=== PATIENT | female | born 1940 | race Caucasian/White ===

== ENCOUNTER 2016-03-27 15:57 | Emergency (ER) | payer MEDICARE, MEDICAID ==
[~2016-03-27] VITALS: Ht 160 cm; Wt 68.0 kg
[~2016-03-27 15:57] MED LIST: ASPI-892 PO; BUDE6HFA IH; CEFD300C PO; CEPH250C PO; CIPR-226 PO; CYCL-97 PO; DEXL60CA PO; EST.625T PO; EST1.25T; ETD400T PO; FAMO20TA5 PO; FLUT16SP22 NSEACH; FLUT1DIS26 IH; GABA-486 PO; HYDR-34 PO; HYDR-3820 PO; HYDR-757 PO; HYDR12.56; HYDR1TAB PO; INSU100I14 SC; L.AC1CAP6 PO; LEVO75TA6 PO; LISI-552 PO; LISI20TA PO; LOPE1TAB13 PO; LVT.05T PO; METO-272 PO; NAPR500T3 PO; OMG1KC; OMG1KC PO; ONDA4TAB11 SL; PRD20T PO; ROPI0.256 PO; ROPI0.5T2 PO; ROSU5TAB PO; RT-COMBINH IH; SERT100T PO; SERT100T8 PO; SIMV40TA2; [UNRECOGNIZED DRUG - CODE]
--- OUTSIDE RECORDS SUMMARY | 2016-03-27 16:02 | XMS REPORT | Continuity of Care Document ---
Author Author [facility] Organization [facility] Address Unknown Phone Unavailable Care Team Providers Care Alum Operator Name Role Phone NO, LOCAL PHYSICIAN PCP Unavailable Insurance Providers Payer Name Policy Number Subscriber Name Relationship s Medicare [id number] Armani Serna R 18 Self / Same As Patient [facility] Amerigrp [id number] Armani Serna R 18 Self / Same As Patient Advance Directives Directive Response Recorded Date/Time Advance Directives No 03/12/16 4:46pm Health Care Power of Auto Inspector No 03/12/16 4:46pm Organ Donor No 03/12/16 4:46pm Resuscitation Status Full Code 03/12/16 4:46pm Chief Complaint and Reason for Visit Chief Complaint FACIAL CELLULITIS,QUESTIONABLE SPIDER BITE TO R FO Reason for Visit Urinary tract infection Problems Active Problems Medical Problem Onset Date Status Facial cellulitis Unknown Acute Gastroenteritis Unknown Acute Hypotension Unknown Acute Left ankle sprain Unknown Acute Lumbar radiculopathy Unknown Acute Nausea vomiting and diarrhea Unknown Acute Pneumonia Unknown Acute Urinary tract infection Unknown Acute Medications Current Home Medications Medication Dose Units Route Directions Days/Qty Instructions Start Date Aspirin 81 Mg 81 Mg Oral Daily 11/12/08 Metoprolol Succinate 50 Mg 50 Mg Oral Daily 03/13/16 Levothyroxine Sodium 75 Mcg 75 Mcg Oral Daily 03/13/16 Famotidine 20 Mg 20 Mg Oral Twice A Day 03/13/16 Sertraline Hcl 100 Mg 100 Mg Oral Daily 03/13/16 Lisinopril 20 Mg 20 Mg Oral Daily 03/13/16 Rosuvastatin Calcium 5 Mg 5 Mg Oral Daily as needed for Hs 03/13/16 Fluticasone Propionate 16 Gm 1 [place] Each Nostril Twice A Day Ondansetron 4 Mg 4 Mg Sublingual Every 4-6 Hours as needed for Nausea/ Vomiting 03/13/16 Hydrocodone/Acetaminophen 1 Each 1-2 Tab Oral Every 4HRS as needed for Pain 03/13/16 Prednisone 20 Mg 20 Mg Oral Daily@1300 5 Days 03/14/16 Cephalexin 250 Mg 250 Mg Oral Three Times A Day 10 03/14/16 Past Home Medications Medication Directions Ordered Status Ipratropium/Albuterol Sulfate 14.7 Gm Aer.w.adap, 2 Puff Inhalation Every 6 Hours as needed 11/12/08 Discontinued Salmeterol Xinafoate/Fluticasone 1 Disk Inhp, 1 Puff Inhalation Twice A Day 11/12/08 Discontinued Sertraline Hcl 100 Mg Tablet, 100 Mg Oral Daily 11/12/08 Discontinued Estrogens Conjugated 1.25 Mg Tablet, 11/12/08 Discontinued Etodolac 400 Mg Tab, 400 Mg Oral Daily 11/12/08 Discontinued Levothyroxine Sodium 50 Mcg Tablet, 25 Mcg Oral Daily 11/12/08 Discontinued Simvastatin 40 Mg Tablet, 11/12/08 Discontinued Panthenol 10 Gm Powder, 11/12/08 Discontinued Metoprolol Succinate (Toprol Xl) 50 Mg Tab.sr.24h, 50 Mg Oral Daily 11/12/08 Discontinued Fish Oil 1,000 Mg Cap, 11/12/08 Discontinued Hydrochlorothiazide 12.5 Mg Tablet, 11/12/08 Discontinued Acetaminophen/Hydrocodone Bitart 1 Ea Tablet, 1 Ea Oral Q 4 - 6 Hr Prn Discontinued Cyclobenzaprine Hcl 10 Mg Tablet, 1 Tab Oral After Meals And At Bedtime 11/12 Discontinued Acetaminophen/Hydrocodone Bitart 1 Each Tablet, 1 Each Oral Q4hr Prn Discontinued Estrogens Conjugated 0.625 Mg Tab, 0.625 Mg Oral Daily 11/12/10 Discontinued Dexlansoprazole 60 Mg Amos., 60 Mg Oral Daily 11/12/10 Discontinued Famotidine (Pepcid) 20 Mg Tablet, 20 Mg Oral Twice A Day 11/12/10 Discontinued Budesonide/Formoterol Fumarate 10.2 Gm Hfa.aer.ad, 2 Puff Inhalation Twice A Day as needed for Shortness Of Breath 12/04/13 Discontinued Salmeterol Xinafoate/Fluticasone 1 Disk Inhp, 1 Puff Inhalation Twice A Day as needed for Shortness Of Breath 12/04/13 Discontinued Rosuvastatin Calcium 5 Mg Tablet, 5 Mg Oral Bedtime 12/04/13 Discontinued Ropinirole Hcl 0.25 Mg Tablet, 0.5 Mg Oral 1 Am/3 Pm 12/04/13 Discontinued Lisinopril 20 Mg Tablet, 20 Mg Oral Daily 12/04/13 Discontinued Gabapentin 100 Mg Capsule, 100 Mg Oral Three Times A Day 12/04/13 Discontinued Fish Oil 1,000 Mg Cap, 2000 Mg Oral Twice A Day 12/04/13 Discontinued Ropinirole Hcl 0.5 Mg Tablet, 1.5 Mg Oral Bedtime 12/04/13 Discontinued Insulin Aspart 100 Unit/1 Ml Insuln.pen, Subcutaneously Per Sliding Scale 12/04/13 Discontinued Ropinirole Hcl 0.5 Mg Tablet, 0.5 Mg Oral Daily 12/04/13 Discontinued Sertraline Hcl 100 Mg Tablet, 100 Mg Oral Daily 12/04/13 Discontinued Metoprolol Succinate 50 Mg Tab.sr.24h, 50 Mg Oral Daily 12/04/13 Discontinued Levothyroxine Sodium 75 Mcg Tablet, 75 Mcg Oral Daily 12/04/13 Discontinued Cefdinir 300 Mg Capsule, 300 Mg Oral Twice A Day 12/06/13 Discontinued Naproxen 500 Mg Tablet, 500 Mg Oral Twice A Day 01/06/15 Discontinued Ciprofloxacin Hcl 250 Mg Tablet, 250 Mg Oral Twice A Day 01/28/15 Discontinued L.acidoph & Paracasei,B.lactis 1 Each Capsule, 1 Each Oral Twice A Day Discontinued Loperamide Hcl/Simethicone 1 Each Tablet, 1 Each Oral As Needed as needed for Diarrhea 01/28/15 Discontinued Hydrocodone/Acetaminophen 1 Each Tablet, 1 Each Oral Every 4HRS as needed for Pain 10/01/15 Discontinued Naproxen 500 Mg Tablet, 500 Mg Oral Twice A Day as needed for Pain 03/13/16 Discontinued Social History Social History Problem Response Recorded Date/Time Alcohol Use Denies Use 10/01/2015 10:35pm Recreational Drug Use No 10/01/2015 10:35pm Recent Foreign Travel No 12/04/2013 12:29pm Recent Infectious Disease Exposure No 12/04/2013 12:29pm Hospitalization with Isolation Denies 12/06/2013 12:58pm Sexually Transmitted Disease No 03/12/2016 4:47pm HIV/AIDS No 03/12/2016 4:47pm Smoking Status Former Smoker 03/12/2016 4:49pm Do you dip or chew tobacco? No 10/01/2015 10:35pm Recent Hopitalizations No 03/12/2016 4:47pm Sexually Transmitted Disease No 03/12/2016 4:47pm Hospitalization with Isolation Denies 12/06/2013 12:58pm Query Response Start Date Stop Date Smoking Status Former Smoker 12/05/1983 Hospital Discharge Instructions No hospital discharge instructions. Plan of Care Discharge Date 03/14/16 2:10pm Disposition 01 HOME, SELF-CARE Instructions/Education Provided Cellulitis (Skin Infection), Adult (DC) Forms Provided Follow-Up Fax PDI Medical Prescriptions See Medication Section Additional Instructions/Education Please follow up with your doctor concerning anemia. Please call to schedule an appointment. Functional Status Query Response Date Recorded Patient Orientation Person Place Time Situation Normal For Age March 14, 2016 4:19pm Comprehension Ability Understands Concepts March 14, 2016 8:41am Allergies, Adverse Reactions, Alerts Allergen Type Severity Reaction Status Last Updated NKANo Known Allergies Allergy Unknown Active 06/01/06 Immunizations No immunization records. Vital Signs Acute Vital Signs Vital Response Date/Time Temperature (Fahrenheit) 98.0 degrees F (97.6 - 99.5) 03/14/2016 11:25am Temperature (Calculated Celsius) 36.50711 degrees C (36.4 - 37.5) 03/14/2016 11:25am Temperature Source Temporal 03/14/2016 11:25am Pulse Rate (adult) 52 bpm (60 - 90) 03/14/2016 11:25am Respiratory Rate 18 bpm (12 - 24) 03/14/2016 11:25am O2 Sat by Pulse Oximetry 98 % (88 - 100) 03/14/2016 11:25am Blood Pressure 183/68 mm Hg 03/14/2016 11:25am Blood Pressure Mean 106 mm Hg 03/14/2016 11:25am Pain Numeric Pain Scale 0-No Pain 03/14/2016 2:10pm Height (Feet) 5 feet 03/12/2016 5:05pm Height (Inches) 4.00 inches 03/12/2016 5:05pm Height (Calculated Centimeters) 162.926060 cm 03/12/2016 5:05pm Weight (Pounds) 165 pounds 03/12/2016 5:05pm Weight (Ounces) 2.0 oz 03/12/2016 5:05pm Weight (Calculated Grams) 39039.44 gm 03/12/2016 5:05pm Weight (Calculated Kilograms) 74.436491 kilograms 03/12/2016 5:05pm Calculated BMI 28.3 03/12/2016 5:05pm Capillary Refill Capillary Refill Less Than 3 Seconds 03/14/2016 8:41am Results Laboratory Results Test Name Result Units Flags Reference Collection Date/Time Result Date/ Time Comments White Blood Count 11.7 10^3/uL H 4.3-11.0 03/14/2016 9:35am 03/14/2016 9: 52am Red Blood Count 3.04 10^6/uL L 4.35-5.85 03/14/2016 9:35am 03/14/2016 9: 52am Hemoglobin 8.9 G/DL L 11.5-16.0 03/14/2016 9:35am 03/14/2016 9:52am Hematocrit 27 % L 35-52 03/14/2016 9:35am 03/14/2016 9:52am Mean Corpuscular Volume 90 FL 80-99 03/14/2016 9:35am 03/14/2016 9: 52am Mean Corpuscular Hemoglobin 29 PG 25-34 03/14/2016 9:35am 03/14/2016 9: 52am Mean Corpuscular Hemoglobin Concent 33 G/DL 32-36 03/14/2016 9:35am 9:52am Red Cell Distribution Width 15.2 % H 10.0-14.5 03/14/2016 9:35am 2015 9:52am Platelet Count 183 10^3/uL 130-400 03/14/2016 9:35am 03/14/2016 9:52am Mean Platelet Volume 10.6 FL H 7.4-10.4 03/14/2016 9:35am 03/14/2016 9: 52am Neutrophils (%) (Auto) 88 % H 42-75 03/14/2016 9:35am 03/14/2016 9:52am Lymphocytes (%) (Auto) 8 % L 12-44 03/14/2016 9:35am 03/14/2016 9:52am Monocytes (%) (Auto) 4 % 0-12 03/14/2016 9:35am 03/14/2016 9:52am Eosinophils (%) (Auto) 0 % 0-10 03/14/2016 9:35am 03/14/2016 9:52am Basophils (%) (Auto) 0 % 0-10 03/14/2016 9:35am 03/14/2016 9:52am Neutrophils # (Auto) 10.2 X 10^3 H 1.8-7.8 03/14/2016 9:35am 03/14/2016 9 :52am Lymphocytes # (Auto) 0.9 X 10^3 L 1.0-4.0 03/14/2016 9:35am 03/14/2016 9: 52am Monocytes # (Auto) 0.5 X 10^3 0.0-1.0 03/14/2016 9:35am 03/14/2016 9: 52am Eosinophils # (Auto) 0.0 10^3/uL 0.0-0.3 03/14/2016 9:35am 03/14/2016 9 :52am Basophils # (Auto) 0.0 10^3/uL 0.0-0.1 03/14/2016 9:35am 03/14/2016 9: 52am Neutrophils % (Manual) 81 % 03/14/2016 9:35am 03/14/2016 10:04am Band Neutrophils 2 % 03/14/2016 9:35am 03/14/2016 10:04am Lymphocytes % (Manual) 14 % 03/14/2016 9:35am 03/14/2016 10:04am Monocytes % (Manual) 3 % 03/14/2016 9:35am 03/14/2016 10:04am Anisocytosis SLIGHT 03/14/2016 9:35am 03/14/2016 10:04am Elliptocytes SLIGHT 03/14/2016 9:35am 03/14/2016 10:04am Helmet Cells SLIGHT 03/14/2016 9:35am 03/14/2016 10:04am Sodium Level 141 MMOL/L 135-145 03/14/2016 9:35am 03/14/2016 10:09am Potassium Level 3.9 MMOL/L 3.6-5.0 03/14/2016 9:35am 03/14/2016 10: 09am Chloride Level 113 MMOL/L H 98-107 03/14/2016 9:35am 03/14/2016 10:09am Carbon Dioxide Level 17 MMOL/L L 21-32 03/14/2016 9:35am 03/14/2016 10: 09am Anion Gap 11 MMOL/L 5-14 03/14/2016 9:35am 03/14/2016 10:09am Blood Urea Nitrogen 22 MG/DL H 7-18 03/14/2016 9:35am 03/14/2016 10:09am Creatinine 1.16 MG/DL 0.60-1.30 03/14/2016 9:35am 03/14/2016 10:09am BUN/Creatinine Ratio 19 03/14/2016 9:35am 03/14/2016 10:09am Estimat Glomerular Filtration Rate 46 03/14/2016 9:35am 03/14/2016 10:09am GFR INTERPRETIVE DATA UNITS FOR ESTIMATED GFR (eGFR): mL/min/1.73 M2 REFERENCE RANGE FOR ESTIMATED GFR (eGFR) eGFR NORMAL eGFR >60 MODERATELY DECREASED eGFR 30-59 SEVERLY DECREASED eGFR 15-29 KIDNEY FAILURE <15 (OR DIALYSIS) Glucose Level 235 MG/DL H 70-105 03/14/2016 9:35am 03/14/2016 10:09am Calcium Level 8.2 MG/DL L 8.5-10.1 03/14/2016 9:35am 03/14/2016 10:09am Total Bilirubin 0.2 MG/DL 0.1-1.0 03/14/2016 9:35am 03/14/2016 10:09am Alkaline Phosphatase 77 U/L 40-136 03/14/2016 9:35am 03/14/2016 10: 09am Aspartate Amino Transf (AST/SGOT) 13 U/L 5-34 03/14/2016 9:35am 2015 10:09am Alanine Aminotransferase (ALT/SGPT) 12 U/L 0-55 03/14/2016 9:35am 03/14 10:09am Total Protein 5.8 G/DL L 6.4-8.2 03/14/2016 9:35am 03/14/2016 10:09am Albumin 3.8 G/DL 3.2-4.5 03/14/2016 9:35am 03/14/2016 10:09am C-Reactive Protein High Sensitivity 0.07 MG/DL 0.00-0.50 03/12/2016 2: 25pm 03/12/2016 2:45pm Stool Occult Blood Immunoassay NEGATIVE NEGATIVE 03/14/2016 10:55am 03/14/2016 11:14am Procedures No known history of procedures. Encounters Encounter Location Arrival/Admit Date Discharge/Depart Date Attending Provider Discharged Inpatient [facility] 03/13/16 11:06am 2:10pm MAURA RAE DO Recent Diagnosis Urinary tract infection
--- NOTE | 2016-03-27 16:06 | ED Abdominal Pain ---
General Stated Complaint: DIARRHEA/ABD PAIN Source of Information: Patient Exam Limitations: No Limitations History of Present Illness Time Seen By Provider: 16:04 Initial Comments To ER with diffuse abdominal cramping and mucousy diarrhea for the past 2 weeks. She has recently been treated for a right facial cellulitis/swelling with oral antibiotics and an admission to the hospital. She denies fevers chills nausea or vomiting. Timing/Duration: Other Severity/Quality: Cramping Location: Generalized Abdomen Radiation: No Radiation Activities at Onset: None Allergies and Home Medications Allergies Coded Allergies: NKANo Known Allergies (Unverified Allergy, Unknown, 06/01/06) lisinopril (Verified Allergy, Unknown, 03/16/16) Home Medications Aspirin 81 Mg Tablet.dr 81 MG PO DAILY (Reported) Cephalexin 250 Mg Capsule #10 250 MG PO TID Prescribed by: KALPANA NUNES on 03/14/16 1014 Famotidine 20 Mg Tablet 20 MG PO BID (Reported) Fluticasone Propionate 16 Gm [place].susp 1 SPRAY NSEACH BID (Reported) Hydrocodone/Acetaminophen 1 Each Tablet 1-2 TAB PO Q4H PRN PRN PAIN (Reported) Levothyroxine Sodium 75 Mcg Tablet 75 MCG PO DAILY (Reported) Lisinopril 20 Mg Tablet 20 MG PO DAILY (Reported) Metoprolol Succinate 50 Mg Tab.er.24h 50 MG PO DAILY (Reported) Ondansetron 4 Mg Tab.rapdis 4 MG SL EVERY 4-6 HOURS PRN PRN NAUSEA/VOMITING ( Reported) Prednisone 20 Mg Tab 5Days 20 MG PO DAILY@1300 Prescribed by: KALPANA NUNES on 03/14/16 1014 Rosuvastatin Calcium 5 Mg Tablet 5 MG PO DAILY PRN PRN HS (Reported) Sertraline HCl 100 Mg Tablet 100 MG PO DAILY (Reported) Review of Systems Constitutional: see HPINo chills, No fever EENTM: No Symptoms Reported Respiratory: No Symptoms Reported Cardiovascular: No Symptoms Reported Gastrointestinal: See HPI Abdominal PainDenies Constipated, DiarrheaDenies Nausea, Denies Vomiting Genitourinary: No Symptoms Reported Musculoskeletal: no symptoms reported Skin: no symptoms reported Psychiatric/Neurological: No Symptoms Reported Endocrine: No Symptoms Reported Past Unomkkm-Oxeljv-Rnzxzu Hx Patient Social History Former Smoker/When Quit: Dec 05, 1983 Recent Foreign Travel: No Contact w/Someone Who Travel: No Recent Hopitalizations: Yes (discharged on 03/14/16) Immunizations Up To Date Tetanus Booster (TDap): Unknown PED Vaccines UTD: Yes Date of Pneumonia Vaccine: Feb 20, 2016 Date of Influenza Vaccine: Feb 20, 2016 Seasonal Allergies Seasonal Allergies: No Surgeries HX Surgeries: Yes (NECK AND BACK) Surgeries: Hysterectomy, Orthopedic Respiratory Hx Respiratory Disorders: Yes Respiratory Disorders: Asthma, COPD Cardiovascular Hx Cardiac Disorders: Yes Cardiac Disorders: Hypertension Neurological Hx Neurological Disorders: No Reproductive System Hx Reproductive Disorders: No Sexually Transmitted Disease: No HIV/AIDS: No Female Reproductive Disorders: Denies [employer] History: Hysterectomy, Menopausal Genitourinary Hx Genitourinary Disorders: No Gastrointestinal Hx Gastrointestinal Disorders: No Musculoskeletal Hx Musculoskeletal Disorders: Yes Musculoskeletal Disorders: Chronic Back Pain Endocrine Hx Endocrine Disorders: Yes Endocrine Disorders: Hypothyroidsim HEENT HX ENT Disorders: No Loss of Vision: Denies Hearing Impairment: Denies Cancer Hx Cancer: No Psychosocial Hx Psychiatric Problems: Yes Behavioral Health Disorders: Depression Integumentary HX Skin/Integumentary Disorder: No Blood Transfusions Hx Blood Disorders: No Family Medical History Family Medial History: Arthritis Asthma Cancer of mouth Cardiovascular disease Cataracts Colon cancer Hypertension Myocardial infarction No Family History of: AIDS Abdominal aortic aneurysm [place]'s disease Alcoholism Alzheimer's disease Aphasia Completed stroke Congenital disease Congenital heart disease Coronary thrombosis Cystic fibrosis Deafness or hearing loss Dementia Diabetes mellitus Drug abuse Dysphasia Fibrocystic disease of breast Gastroenteritis Glaucoma Headache disorder Hypercholesterolemia Infertility Kidney disease Neoplasm Not obtainable due to adoption Osteoporosis Parkinson's disease Prostate cancer Psychosocial problem Respiratory disorder Seizure disorder Severe allergy Thyroid disease Tuberculosis Visual disorder Physical Exam Vital Signs VS - Last 72 Hours, by Label 03/27/16 16:06 Temp 98.5 Pulse 104 Resp 18 B/P 143/83 Pulse Ox 96 Capillary Refill : General Appearance: WD/WN no apparent distress HEENT: PERRL/EOMI normal ENT inspection Respiratory: no respiratory distress no accessory muscle use Gastrointestinal: normal bowel sounds soft tenderness (diffuse) Extremities: normal range of motion non-tender Neurologic/Psychiatric: alert normal mood/affect oriented x 3 Skin: normal color warm/dry Progress/Results/Core Measures Results/Orders Lab Results Laboratory Tests Test 03/27/16 16:15 Range/Units Alanine Aminotransferase (ALT/SGPT) 11 0-55 U/L Albumin 3.9 3.2-4.5 G/DL Alkaline Phosphatase 75 40-136 U/L Anion Gap 10 5-14 MMOL/L Aspartate Amino Transf (AST/SGOT) 12 5-34 U/L BUN/Creatinine Ratio 20 Band Neutrophils 5 % Basophils # (Auto) 0.1 0.0-0.1 10^3/uL Basophils % (Manual) 0 % Basophils (%) (Auto) 0 0-10 % Blood Morphology Comment NORMAL Blood Urea Nitrogen 20 H 7-18 MG/DL Calcium Level 9.2 8.5-10.1 MG/DL Carbon Dioxide Level 19 L 21-32 MMOL/L Chloride Level 110 H 98-107 MMOL/L Creatinine 0.98 0.60-1.30 MG/DL Eosinophils # (Auto) 0.3 0.0-0.3 10^3/uL Eosinophils % (Manual) 0 % Eosinophils (%) (Auto) 2 0-10 % Estimat Glomerular Filtration Rate 56 Glucose Level 101 70-105 MG/DL Hematocrit 34 L 35-52 % Hemoglobin 11.3 L 11.5-16.0 G/DL Lipase 12 8-78 U/L Lymphocytes # (Auto) 2.6 1.0-4.0 X 10^3 Lymphocytes % (Manual) 20 % Lymphocytes (%) (Auto) 15 12-44 % Mean Corpuscular Hemoglobin 30 25-34 PG Mean Corpuscular Hemoglobin Concent 34 32-36 G/DL Mean Corpuscular Volume 88 80-99 FL Mean Platelet Volume 9.9 7.4-10.4 FL Monocytes # (Auto) 1.6 H 0.0-1.0 X 10^3 Monocytes % (Manual) 6 % Monocytes (%) (Auto) 9 0-12 % Neutrophils # (Auto) 12.8 H 1.8-7.8 X 10^3 Neutrophils % (Manual) 69 % Neutrophils (%) (Auto) 74 42-75 % Platelet Count 280 130-400 10^3/uL Potassium Level 3.9 3.6-5.0 MMOL/L Red Blood Count 3.83 L 4.35-5.85 10^6/uL Red Cell Distribution Width 15.0 H 10.0-14.5 % Sodium Level 139 135-145 MMOL/L Total Bilirubin 0.5 0.1-1.0 MG/DL Total Protein 7.0 6.4-8.2 G/DL White Blood Count 17.4 H 4.3-11.0 10^3/uL My Orders Orders-GRIFFIN PARKER RETREAD MOLD OPERATOR Cbc With Automated Diff (03/27/16 16:03) Comprehensive Metabolic Panel (03/27/16 16:03) Ua Culture If Indicated (03/27/16 16:03) Saline Lock/Iv-Start (03/27/16 16:03) Lipase (03/27/16 16:03) Stool Culture (03/27/16 16:03) C Difficile Ag + Toxin A/B. (03/27/16 16:03) Fentanyl Injection (Sublimaze Injection (03/27/16 16:15) Manual Differential (03/27/16 16:15) Ct Abdomen/Pelvis Wo (03/27/16 16:45) Medications Given in ED Current Medications Medications Dose Ordered Sig/Jen Route Start Time Stop Time Status Last Admin Dose Admin Fentanyl Citrate 50 mcg ONCE ONCE IVP 03/27/16 16:15 03/27/16 16:16 DC 03/27/16 16:17 50 MCG Vital Signs/I&O Vital Sign - Last 12Hours 03/27/16 16:06 Temp 98.5 Pulse 104 Resp 18 B/P 143/83 Pulse Ox 96 Departure Communication Progress Notes Patient is not nauseated and has not been vomiting. She would be able to tolerate oral fluids and oral antibiotics. She is afebrile. She didn't give him 1 L of IV fluids in the emergency room. Up-to-date would suggest oral vancomycin would be more effective than oral Flagyl given that she meets criteria for "severe Clostridium difficile infection" evidenced by her tachycardia, abdominal pain and leukocytosis. I've called [facility] pharmacy and this will cost her $0. I discussed the case with Dr. Hines was transportation manager as the patient's primary care is Dr. Brink in [place]. Given that she is not vomiting and should tolerate oral therapy. Recommend attempting outpatient therapy first. Given her pancolitis following a course of IV/oral antibiotics for facial cellulitis and hospital admission we will presume this to be of C diff etiology. There is no evidence of acute renal failure. The vancomycin prescription will not show up on her prescription list as I have called this in via telephone to Rashard, pharmacist at [facility].. Impression Impression: Primary Impression: Acute colitis Disposition: HOME, SELF-CARE Condition: Improved Departure-Patient Inst. Decision time for Depature: 17:13 Referrals: NO,LOCAL PHYSICIAN (PCP/Family) Primary Care Physician Patient Instructions: Diarrhea in Adolescents and Adults Add. Discharge Instructions: 1. Take antibiotics as directed 2. Return to ER for any bloody diarrhea, lightheadedness, worsening pain or fevers as we would need to more strongly consider admission at that time. Scripts L.acidoph & Paracasei,B.lactis (Probiotic)1 Each Capsule1 Each PO TID #30 CAP Prov:GRIFFIN PARKER RETREAD MOLD OPERATOR 03/27/16 GRIFFIN PARKER APRN Mar 27, 2016 16:05
[2016-03-27] MEDS ORDERED: fentaNYL INJECTION 100 MCG/2 ML AMP IVP ONE (16:15)
[2016-03-27 16:28] LABS: BASOPHILS # (AUTO) 0.1 10^3/uL (0.0-0.1); BASOPHILS % (AUTO) 0 % (0-10); EOSINOPHILS # (AUTO) 0.3 10^3/uL (0.0-0.3); EOSINOPHILS % (AUTO) 2 % (0-10); LYMPHOCYTES # (AUTO) 2.6 X 10^3 (1.0-4.0); LYMPHOCYTES % (AUTO) 15 % (12-44); MEAN CORPUSCULAR HEMOGLOBIN 30 PG (25-34); MEAN CORPUSCULAR HGB CONC 34 G/DL (32-36); MEAN CORPUSCULAR VOLUME 88 FL (80-99); MEAN PLATELET VOLUME 9.9 FL (7.4-10.4); MONOCYTES # (AUTO) 1.6 X 10^3 (0.0-1.0); MONOCYTES % (AUTO) 9 % (0-12); NEUTROPHILS # (AUTO) 12.8 X 10^3 (1.8-7.8); NEUTROPHILS % (AUTO) 74 % (42-75); PLATELET COUNT 280 10^3/uL (130-400); RED BLOOD COUNT 3.83 10^6/uL (4.35-5.85); WHITE BLOOD COUNT 17.4 10^3/uL (4.3-11.0)
[2016-03-27 16:44] LABS: ALBUMIN 3.9 G/DL (3.2-4.5); BILIRUBIN,TOTAL 0.5 MG/DL (0.1-1.0); CALCIUM 9.2 MG/DL (8.5-10.1); CREATININE SERUM 0.98 MG/DL (0.60-1.30); POTASSIUM 3.9 MMOL/L (3.6-5.0)
[2016-03-27 17:05] LABS: BAND NEUTROPHILS 5 %; LYMPHOCYTES % (MANUAL) 20 %; NEUTROPHILS % (MANUAL) 69 %
[2016-03-27 17:06] LABS: BASOPHILS % (MANUAL) 0 %; EOSINOPHILS % (MANUAL) 0 %
--- NOTE | 2016-03-27 17:07 | Diagnostic Imaging Report ---
PROCEDURE: CT abdomen and pelvis without contrast. TECHNIQUE: Multiple contiguous axial images were obtained through the abdomen and pelvis without the use of intravenous contrast. INDICATION: Severe diarrhea. FINDINGS: There is pancolonic large bowel wall thickening from the cecum distally through the rectum. This is in a nonvascular distribution and while nonspecific and compatible with any etiology of colitis, the pattern raises the question of pseudomembranous disease. Correlate clinically. There is a trace amount of pelvic free fluid. No loculated collection. No abscess. There were no features of appendicitis or focal diverticulitis. Small bowel is unobstructed and appeared normal at this nonenhanced exam. Liver, gallbladder, bile ducts, spleen, adrenals and pancreas unremarkable. There is mild to moderate pericolonic fatty infiltration on an inflammatory basis throughout. IMPRESSION: Features of pancolitis and proctitis with small volume free fluid and pericolonic edema but no abscess, perforation or obstruction. No other acute finding. Dictated by: Dictated on workstation # [id number]
[2016-03-27] MEDS ORDERED: L.AC1CAP6 PO (17:15)
[2016-03-27] MEDS ORDERED: VANCOMYCIN ORAL SUSPENSION 60 ML BOTTLE PO SCH (17:30)
[2016-03-27 17:45] VITALS: BP 148/76
== END 2016-03-27 17:45 | disposition home or self-care (01) ==
LOC: EDUNIT# 15:57 → ER 15:58
DX: K52.9 Noninfective gastroenteritis and colitis, unspecified (principal); I10 Essential (primary) hypertension; J44.9 Chronic obstructive pulmonary disease, unspecified; Z79.82 Long term (current) use of aspirin; Z79.899 Other long term (current) drug therapy
CPT/HCPCS: 36415; 74176; 80053; 83690; 85007; 85027; 87045; 87046; 87324; 87449; 96374

== ENCOUNTER 2016-11-20 17:55 | Emergency (ER) | payer MEDICARE, MEDICAID ==
[~2016-11-20] VITALS: Ht 162.6 cm; Wt 65.8 kg
[~2016-11-20 17:55] MED LIST changes: +METO-370 PO; -NAPR500T3 PO; +NAPR500T4 PO
--- OUTSIDE RECORDS SUMMARY | 2016-11-20 18:01 | XMS REPORT ---
Author Author LISSETH STOUT [facility] e[employer] Address Unknown Phone Unavailable Care Team Providers Care Driver Operator Name Role Phone LISSETH STOUT CP Unavailable Allergies, Adverse Reactions, Alerts Substance Reaction Event Type N.K.D.A. Info Not Available Non Drug Allergy Problems Problem Type Condition Code Onset Dates Condition Status Assessment Dental examination Z01.20 Active Medications Medication Code System Code Instructions Start Date End Date Status Dosage Aspirin [facility] [address]-05 not defined Sertraline HCl [facility] [address]-42 not defined Famotidine [facility] [address]-04 not defined Levothyroxine Sodium [facility] [address]-54 not defined Symbicort [facility] [address]-36 not defined Etodolac [facility] [address]-71 not defined Gabapentin NDC 0 not defined Lisinopril [facility] [address]-63 not defined Metoprolol Succinate NDC 0 not defined Crestor [facility] [address]-95 not defined Fish Oil [facility] [address]-92 not defined Advair Diskus [facility] [address]-07 not defined Ropinirole HCl [facility] [address]-40 not defined Procedures Procedure Coding System Code Date INTRAORL-PERIAPICAL 1 FILM 34993 CPT-4 D0220 Mar 08, 2015 BITEWING - SINGLE FILM CPT-4 D0270 Mar 08, 2015 LTD ORAL EVALUATION - PROBLEM FOCUS CPT-4 D0140 Mar 08, 2015 Vital Signs Date/Time: Mar 08, 2015 Blood Pressure Diastolic 78 mmHg Blood Pressure Systolic 164 mmHg Results No Known Results Summary Purpose eClinicalWorks Submission
--- NOTE | 2016-11-20 18:43 | ED GI ---
General Chief Complaint: Abdominal/GI Problems Stated Complaint: DIARRHEA Nursing Triage Note: to ER with reports of diarrhea since 1600 today. Patient reports it is just liquid diarrhea and she has had nausea as well. Denies abdominal pain. Sepsis Screen: No Definite Risk Source of Information: Patient, Spouse Exam Limitations: No Limitations History of Present Illness Time Seen By Provider: 18:42 Initial Comments Patient presents to ER because this afternoon she started having copious loose watery diarrhea without blood. She is also nauseated and throwing up. Known ulcer on her ears been sick. She had no recent travel outside the state. She has not been drinking for any unsafe water or food sources. She has modest pain all over her belly. She's never had a colonoscopy or told she had diverticulosis. She feels chills and very cold. Her only other similar medical history would be blood pressure depression and hypothyroidism. She is modestly short of breath however this is at baseline as she is asthmatic with emphysema. She is not coughing or producing anything. She has no rash. She's had no and bouts for the past 4 weeks however she is a history that in March she had a colitis and was treated with multiple rounds of antibiotics and was told it may had C. difficile in it. Allergies and Home Medications Allergies Coded Allergies: NKANo Known Allergies (Unverified Allergy, Unknown, 06/01/06) lisinopril (Verified Allergy, Unknown, 03/16/16) Home Medications Aspirin 81 Mg Tablet.dr, 81 MG PO DAILY, (Reported) Cephalexin 250 Mg Capsule, 250 MG PO TID, #10 Prescribed by: KALPANA NUNES on 03/14/16 1014 Cephalexin 500 Mg Capsule, 500 MG PO BID for 6 Days, #12 Ref 0 Prescribed by: HALINA YADAV on 11/20/16 203 Famotidine 20 Mg Tablet, 20 MG PO BID, (Reported) Fluticasone Propionate 16 Gm [place].susp, 1 SPRAY NSEACH BID, (Reported) Hydrocodone/Acetaminophen 1 Each Tablet, 1-2 TAB PO Q4H PRN for PAIN, (Reported) L.acidoph & Paracasei,B.lactis 1 Each Capsule, 1 EACH PO TID, #30 Prescribed by: GRIFFIN PARKER on 03/27/16 1715 Levothyroxine Sodium 75 Mcg Tablet, 75 MCG PO DAILY, (Reported) Lisinopril 20 Mg Tablet, 20 MG PO DAILY, (Reported) Metoprolol Succinate 50 Mg Tab.er.24h, 50 MG PO DAILY, (Reported) Ondansetron 4 Mg Tab.rapdis, 4 MG SL EVERY 4-6 HOURS PRN for NAUSEA/VOMITING, ( Reported) Ondansetron 4 Mg Tab.rapdis, 4 MG PO Q6H PRN for NAUSEA/VOMITING-1ST LINE, #14 Ref 0 Prescribed by: HALINA YADAV on 11/20/162030 Prednisone 20 Mg Tab, 20 MG PO DAILY@1300 for 5 Days Prescribed by: KALPANA NUNES on 03/14/16 1014 Rosuvastatin Calcium 5 Mg Tablet, 5 MG PO DAILY PRN for HS, (Reported) Sertraline HCl 100 Mg Tablet, 100 MG PO DAILY, (Reported) Review of Systems Constitutional: chills, diaphoresis, fever, malaise EENTM: No Blurred Vision, No Double Vision, No Eye Pain Respiratory: Denies Cough, Denies Shortness of Air (baseline) Cardiovascular: Denies Chest Pain, Denies Edema Gastrointestinal: Abdomen Distended, Abdominal Pain (diffuse), Denies Blood Streaked Stools, Denies Constipated, Diarrhea, Nausea, Poor Appetite, Vomiting Genitourinary: Denies Burning, Denies Discharge, Denies Frequency Musculoskeletal: No back pain, No joint pain Skin: No pruritus, No rash Psychiatric/Neurological: Denies Headache, Denies Numbness Past Itqjnuv-Emvnvu-Bukvln Hx Patient Social History Alcohol Use: Denies Use Recreational Drug Use: No Smoking Status: Former Smoker Former Smoker, Quit: May 28, 1982 2nd Hand Smoke Exposure: No Recent Foreign Travel: No Contact w/Someone Who Travel: No Recent Infectious Disease Expo: No Recent Hopitalizations: No Physical Abuse: No Sexual Abuse: No Mistreated: No Fear: No Immunizations Up To Date Tetanus Booster (TDap): Less than 5yrs PED Vaccines UTD: Yes Date of Pneumonia Vaccine: Feb 20, 2016 Date of Influenza Vaccine: Feb 20, 2016 Seasonal Allergies Seasonal Allergies: No Surgeries History of Surgeries: Yes (NECK AND BACK) Surgeries: Hysterectomy, Orthopedic Respiratory History of Respiratory Disorde: Yes Respiratory Disorders: Asthma, COPD Cardiovascular History of Cardiac Disorders: Yes Cardiac Disorders: Hypertension Neurological History of Neurological Disord: No Reproductive System Hx Reproductive Disorders: No Sexually Transmitted Disease: No HIV/AIDS: No Female Reproductive Disorders: Denies 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, 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 Gastrointestinal History of Gastrointestinal Di: No Musculoskeletal History of Musculoskeletal Dis: Yes Musculoskeletal Disorders: Chronic Back Pain Endocrine History of Endocrine Disorders: Yes Endocrine Disorders: Hypothyroidsim HEENT Loss of Vision: Denies Hearing Impairment: Denies Cancer History of Cancer: No Psychosocial History of Psychiatric Problem: Yes Behavioral Health Disorders: Depression Suicide Risk Score: 0 Integumentary History of Skin or Integumenta: No Blood Transfusions History of Blood Disorders: No Family Medical History Family Medial History: Arthritis Asthma Cancer of mouth Cardiovascular disease Cataracts Colon cancer Hypertension Myocardial infarction No Family History of: AIDS Abdominal aortic aneurysm [place]'s disease Alcoholism Alzheimer's disease Aphasia Completed stroke Congenital disease Congenital heart disease Coronary thrombosis Cystic fibrosis Deafness or hearing loss Dementia Diabetes mellitus Drug abuse Dysphasia Fibrocystic disease of breast Gastroenteritis Glaucoma Headache disorder Hypercholesterolemia Infertility Kidney disease Neoplasm Not obtainable due to adoption Osteoporosis Parkinson's disease Prostate cancer Psychosocial problem Respiratory disorder Seizure disorder Severe allergy Thyroid disease Tuberculosis Visual disorder Physical Exam Vital Signs VS - Last 72 Hours, by Label 11/20/16 18:01 Pulse 104 Resp 18 B/P (MAP) 157/74 Pulse Ox 97 O2 Delivery Room Air Capillary Refill : Less Than 3 Seconds General Appearance: WD/WN, moderate distress HEENT: PERRL/EOMI, normal ENT inspection, TMs normal, pharynx normal Neck: non-tender, supple, normal inspection Respiratory: chest non-tender, lungs clear, normal breath sounds Cardiovascular: normal peripheral pulses, regular rate, rhythm, no edema Peripheral Pulses: 2+ Radial Pulses (R), 2+ Radial Pulses (L) Gastrointestinal: normal bowel sounds, non tender, soft Extremities: normal range of motion, non-tender, normal inspection, normal capillary refill Back: normal inspection, no CVA tenderness 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, alert, normal mood/affect, oriented x 3 Skin: normal color, warm/dry Lymphatic: no adenopathy Focused Exam Evaluation Lactate Level Laboratory Tests 11/20/16 19:30: Lactic Acid Level 2.17*H 11/20/16 21:35: Lactic Acid Level Laboratory Tests Test 11/20/16 19:30 11/20/16 21:35 Lactic Acid Level 2.17 MMOL/L (0.50-2.00) *H Progress/Results/Core Measures Results/Orders Lab Results Laboratory Tests Test 11/20/16 19:30 11/20/16 19:52 11/20/16 21:35 Range/Units White Blood Count 16.1 H 4.3-11.0 10^3/uL Red Blood Count 3.88 L 4.35-5.85 10^6/uL Hemoglobin 11.4 L 11.5-16.0 G/DL Hematocrit 35 35-52 % Mean Corpuscular Volume 90 80-99 FL Mean Corpuscular Hemoglobin 29 25-34 PG Mean Corpuscular Hemoglobin Concent 33 32-36 G/DL Red Cell Distribution Width 13.0 10.0-14.5 % Platelet Count 201 130-400 10^3/uL Mean Platelet Volume 10.2 7.4-10.4 FL Neutrophils (%) (Auto) 90 H 42-75 % Lymphocytes (%) (Auto) 2 L 12-44 % Monocytes (%) (Auto) 7 0-12 % Eosinophils (%) (Auto) 2 0-10 % Basophils (%) (Auto) 0 0-10 % Neutrophils # (Auto) 14.4 H 1.8-7.8 X 10^3 Lymphocytes # (Auto) 0.3 L 1.0-4.0 X 10^3 Monocytes # (Auto) 1.0 0.0-1.0 X 10^3 Eosinophils # (Auto) 0.4 H 0.0-0.3 10^3/uL Basophils # (Auto) 0.0 0.0-0.1 10^3/uL Neutrophils % (Manual) 91 % Lymphocytes % (Manual) 2 % Monocytes % (Manual) 6 % Eosinophils % (Manual) 1 % Blood Morphology Comment NORMAL Prothrombin Time 13.3 12.2-14.7 SEC INR Comment 1.0 0.8-1.4 Activated Partial Thromboplast Time 28 24-35 SEC Sodium Level 143 135-145 MMOL/L Potassium Level 4.1 3.6-5.0 MMOL/L Chloride Level 115 H 98-107 MMOL/L Carbon Dioxide Level 16 L 21-32 MMOL/L Anion Gap 12 5-14 MMOL/L Blood Urea Nitrogen 33 H 7-18 MG/DL Creatinine 1.13 0.60-1.30 MG/DL Estimat Glomerular Filtration Rate 47 BUN/Creatinine Ratio 29 Glucose Level 131 H 70-105 MG/DL Lactic Acid Level 2.17 *H 0.50-2.00 MMOL/L Calcium Level 8.9 8.5-10.1 MG/DL Magnesium Level 1.3 L 1.8-2.4 MG/DL Total Bilirubin 0.4 0.1-1.0 MG/DL Aspartate Amino Transf (AST/SGOT) 15 5-34 U/L Alanine Aminotransferase (ALT/SGPT) 13 0-55 U/L Alkaline Phosphatase 72 40-136 U/L Total Protein 6.8 6.4-8.2 GM/DL Albumin 3.7 3.2-4.5 GM/DL Urine Color YELLOW Urine Clarity CLEAR Urine pH 5 5-9 Urine Specific [place] 1.020 1.016-1.022 Urine Protein NEGATIVE NEGATIVE Urine Glucose (UA) NEGATIVE NEGATIVE Urine Ketones NEGATIVE NEGATIVE Urine Nitrite NEGATIVE NEGATIVE Urine Bilirubin NEGATIVE NEGATIVE Urine Urobilinogen NORMAL NORMAL MG/DL Urine Leukocyte Esterase 3+ H NEGATIVE Urine RBC (Auto) 1+ H NEGATIVE Urine RBC 5-10 H /HPF Urine WBC 25-50 H /HPF Urine Squamous Epithelial Cells 2-5 /HPF Urine Crystals NONE /LPF Urine Bacteria MODERATE H /HPF Urine Casts NONE /LPF Urine Mucus MODERATE H /LPF Urine Culture Indicated YES My Orders Orders - HALINA YADAV Ct Abdomen/Pelvis Wo (11/20/16 18:45) Cbc With Automated Diff (11/20/16 18:45) Comprehensive Metabolic Panel (11/20/16 18:45) Magnesium (11/20/16 18:45) Ua Culture If Indicated (11/20/16 18:45) Lactic Acid Analyzer (11/20/16 18:45) Blood Culture (11/20/16 18:45) Sputum Culture (11/20/16 18:45) Protime With Inr (11/20/16 18:45) Partial Thromboplastin Time (11/20/16 18:45) Chest 1 View, Ap/Pa Only (11/20/16 18:45) O2 (11/20/16 18:45) Ondansetron Injection (Zofran Injectio (11/20/16 18:45) Saline Lock/Iv-Start (11/20/16 18:45) Vital Signs Adult Sepsis Patie Q1HR (11/20/16 18:45) Remove Rings In Anticipation O (11/20/16 18:45) Ketorolac Injection (Toradol Injection) (11/20/16 18:45) Ketorolac Injection (Toradol Injection) (11/20/16 18:45) Urine Culture (11/20/16 19:52) Ceftriaxone Injection (Rocephin Injectio (11/20/16 20:30) Magnesium Oxide Tablet (Mag Ox Tablet) (11/20/16 20:30) Ns Iv 1000 Ml (Sodium Chloride 0.9%) (11/20/16 20:21) Manual Differential (11/20/16 19:30) Rx-Ondansetron Po (Rx-Zofran Po) (11/20/16 20:26) Medications Given in ED Current Medications Medications Dose Ordered Sig/Jen Route Start Time Stop Time Status Last Admin Dose Admin Ceftriaxone Sodium 1000 mg/ Sodium Chloride 50 ml @ 100 mls/hr ONCE ONCE IV 11/20/16 20:30 11/20/16 20:59 DC 11/20/16 20:31 100 MLS/HR Ketorolac Tromethamine 15 mg ONCE ONCE IVP 11/20/16 18:45 11/20/16 18:50 DC 11/20/16 18:55 15 MG Magnesium Oxide 400 mg ONCE ONCE PO 11/20/16 20:30 11/20/16 20:31 DC 11/20/16 20:30 400 MG Ondansetron HCl 4 mg ONCE PRN IVP 11/20/16 18:45 11/20/16 18:56 DC 11/20/16 18:55 4 MG Sodium Chloride 1,000 ml @ 0 mls/hr Q0M ONCE IV 11/20/16 20:21 11/20/16 20:23 DC 11/20/16 20:31 0 MLS/HR Vital Signs/I&O Vital Sign - Last 12Hours 11/20/16 18:01 Pulse 104 Resp 18 B/P (MAP) 157/74 Pulse Ox 97 O2 Delivery Room Air Intake and Output 11/21/16 00:00 Intake Total 900 ml Balance 900 ml Blood Pressure Mean: 101 Progress Note #1: Time: 20:29 Progress Note Discussed the case and alternatives of the patient for observation stay for antibiotics and fluids the patient feels she is somewhat better now she has some IV fluids and nausea medicines that she thinks she can go home and I tend to agree with this. Progress Note #2: Time: 21:44 Progress Note Patient is feeling much better now after some fluids and nausea medicines and is ready to go home. Diagnostic Imaging Diagonstic Imaging: Xray Plain Films/CT/US/NM/MRI: chest [facility] [place], [place] NAME: ARMANI CARY [facility] REC#: [id number] PT STATUS: REG ER : 1940 PHYSICIAN: HALINA YADAV MD ADMIT DATE: 11/20/16/ER Draft Date of Exam:11/20/16 CHEST 1 VIEW, AP/PA ONLY INDICATION: Fever, abdominal pain, diarrhea. COMPARISON: 12/04/2013. FINDINGS: The lungs are clear. The heart and vessels normal. No effusion or pneumothorax. IMPRESSION: Negative. Dictated on workstation # [id number] Dict: 11/20/161908 Trans: 11/20/161916 [facility] [id number] Interpreted by: VIOLET GRIFFITHS Electronically signed by: Reviewed: Reviewed by Me Diagonstic Imaging: CT Plain Films/CT/US/NM/MRI: abdomen, pelvis Comments [facility] [place], [place] NAME: ARMANI CARY [facility] REC#: [id number] PT STATUS: REG ER : 1940 PHYSICIAN: HALINA YADAV MD ADMIT DATE: 11/20/16/ER Draft Date of Exam:11/20/16 CT ABDOMEN/PELVIS WO PROCEDURE: CT abdomen and pelvis without contrast. TECHNIQUE: Multiple contiguous axial images were obtained through the abdomen and pelvis without the use of intravenous contrast. INDICATION: Pain, vomiting, diarrhea. Exam compared 03/27/2016. FINDINGS: Previously, there were convincing features of pancolitis and proctitis having resolved in the interim. No focal or segmental large bowel wall thickening and no perienteric or pericolonic edema. There is no abscess nor evidence for bowel obstruction. Chronic fatty hernia posterior right laterally in the flank is stable without inflammation. No herniated viscus. Liver, gallbladder, bile ducts, spleen, adrenals, pancreas all unremarkable. There is no ascites, abscess, hematoma or fluid collection. There is no hydronephrosis. Right renal cortical cyst and some chronic right renal cortical atrophy are stable findings. Nonaneurysmal aortic atherosclerosis stable. There are postoperative changes to the lower lumbar spine stable and the lung bases clear. IMPRESSION: Resolution of previous features of pancolitis and proctitis. No inflammatory process, obstructive features or acute abnormality on followup. Dictated on workstation # [id number] Dict: 11/20/161906 Trans: 11/20/161913 [facility] [id number] Interpreted by: VIOLET GRIFFITHS Electronically signed by: Reviewed: Reviewed by Me Departure Impression Impression: Primary Impression: Urinary tract infection Qualified Codes: N30.01 - Acute cystitis with hematuria Disposition: HOME, SELF-CARE Condition: Improved Departure-Patient Inst. Decision time for Depature: 21:44 Referrals: NO,LOCAL PHYSICIAN (PCP/Family) Primary Care Physician Patient Instructions: Urinary Tract Infection, Adult (DC) Add. Discharge Instructions: Drink copious amounts of fluids. Use Tylenol 1000 mg every 8 hours or ibuprofen 800 mg every 8 hours as needed if you're having chills, feeling cold or fevers. If you have nausea you should take one tablet of Zofran under the tongue and let it dissolve and absorbed to your mouth every 6 hours as needed area take the antibiotics twice a day with some food. If you're worried about the loose stools, with antibiotics you can also take eat yogurt with active culture or probiotics twice a day. If you have any new or worsening symptoms or you're not able to control your nausea or fever he should return to the ER immediately. All discharge instructions reviewed with patient and/or family. Voiced understanding. Scripts Ondansetron (Zofran Odt) 4 Mg Tab.rapdis 4 MG PO Q6H Y for NAUSEA/VOMITING-1ST LINE, #14 TAB 0 Refills Prov: HALINA YADAV 11/20/16 Cephalexin (Keflex) 500 Mg Capsule 500 MG PO BID for 6 Days, #12 CAP 0 Refills Prov: HALINA YADAV 11/20/16 HALINA YADAV Nov 20, 2016 18:43
[2016-11-20] MEDS ORDERED: ONDANSETRON 4 MG/2 ML (SDV) Z0FRAN IVP PRN (18:45)
[2016-11-20] MEDS ORDERED: KETOROLAC 15 MG/ML VIAL IVP ONE (18:45)
[2016-11-20] MEDS ORDERED: KETOROLAC 30 MG/ML VIAL ONE (18:45)
--- NOTE | 2016-11-20 19:14 | Diagnostic Imaging Report ---
PROCEDURE: CT abdomen and pelvis without contrast. TECHNIQUE: Multiple contiguous axial images were obtained through the abdomen and pelvis without the use of intravenous contrast. INDICATION: Pain, vomiting, diarrhea. Exam compared 03/27/2016. FINDINGS: Previously, there were convincing features of pancolitis and proctitis having resolved in the interim. No focal or segmental large bowel wall thickening and no perienteric or pericolonic edema. There is no abscess nor evidence for bowel obstruction. Chronic fatty hernia posterior right laterally in the flank is stable without inflammation. No herniated viscus. Liver, gallbladder, bile ducts, spleen, adrenals, pancreas all unremarkable. There is no ascites, abscess, hematoma or fluid collection. There is no hydronephrosis. Right renal cortical cyst and some chronic right renal cortical atrophy are stable findings. Nonaneurysmal aortic atherosclerosis stable. There are postoperative changes to the lower lumbar spine stable and the lung bases clear. IMPRESSION: Resolution of previous features of pancolitis and proctitis. No inflammatory process, obstructive features or acute abnormality on followup. Dictated by: Dictated on workstation # [id number]
--- NOTE | 2016-11-20 19:17 | Diagnostic Imaging Report ---
INDICATION: Fever, abdominal pain, diarrhea. COMPARISON: 12/04/2013. FINDINGS: The lungs are clear. The heart and vessels normal. No effusion or pneumothorax. IMPRESSION: Negative. Dictated by: Dictated on workstation # [id number]
[2016-11-20 19:56] LABS: BASOPHILS % (AUTO) 0 % (0-10); EOSINOPHILS # (AUTO) 0.4 10^3/uL (0.0-0.3); EOSINOPHILS % (AUTO) 2 % (0-10); LYMPHOCYTES # (AUTO) 0.3 X 10^3 (1.0-4.0); LYMPHOCYTES % (AUTO) 2 % (12-44); MEAN CORPUSCULAR HEMOGLOBIN 29 PG (25-34); MEAN CORPUSCULAR HGB CONC 33 G/DL (32-36); MEAN CORPUSCULAR VOLUME 90 FL (80-99); MEAN PLATELET VOLUME 10.2 FL (7.4-10.4); MONOCYTES % (AUTO) 7 % (0-12); NEUTROPHILS # (AUTO) 14.4 X 10^3 (1.8-7.8); NEUTROPHILS % (AUTO) 90 % (42-75); PLATELET COUNT 201 10^3/uL (130-400); RED BLOOD COUNT 3.88 10^6/uL (4.35-5.85); WHITE BLOOD COUNT 16.1 10^3/uL (4.3-11.0)
[2016-11-20] MEDS ORDERED: metroNIDAZOLE 500 MG (FLAGYL) TAB PO ONE (20:00)
[2016-11-20 20:02] LABS: BILIRUBIN,URINE NEGATIVE (NEGATIVE); KETONES,URINE NEGATIVE (NEGATIVE); LEUKOCYTE ESTERASE ,URINE 3+ (NEGATIVE); NITRITE,URINE NEGATIVE (NEGATIVE); PH,URINE 5 (5-9); PROTEIN,URINE NEGATIVE (NEGATIVE); UROBILINOGEN,URINE NORMAL (NORMAL)
[2016-11-20 20:06] LABS: PROTHROMBIN TIME PATIENT 13.3 SEC (12.2-14.7)
[2016-11-20 20:12] LABS: WBC,URINE 25-50 /HPF
[2016-11-20 20:16] LABS: ALBUMIN 3.7 GM/DL (3.2-4.5); BILIRUBIN,TOTAL 0.4 MG/DL (0.1-1.0); CALCIUM 8.9 MG/DL (8.5-10.1); CREATININE SERUM 1.13 MG/DL (0.60-1.30); MAGNESIUM 1.3 MG/DL (1.8-2.4); POTASSIUM 4.1 MMOL/L (3.6-5.0); TOTAL PROTEIN 6.8 GM/DL (6.4-8.2)
[2016-11-20] MEDS ORDERED: NS IV 1000 ML 1,000 ML IV ONE (20:21)
[2016-11-20 20:25] LABS: EOSINOPHILS % (MANUAL) 1 %; LYMPHOCYTES % (MANUAL) 2 %; NEUTROPHILS % (MANUAL) 91 %
[2016-11-20] MEDS ORDERED: RX-ONDANSETRON 4 MG ODT (ZOFRAN) PPK #4 PO STA (20:26)
[2016-11-20] MEDS ORDERED: MAGNESIUM OXIDE (MAG-OX)400 MG TAB PO ONE (20:30)
[2016-11-20] MEDS ORDERED: cefTRIAXone INJECTION 1,000 MG in NS (IVPB) 50 ML IV ONE (20:30)
[2016-11-20] MEDS ORDERED: ONDA4TAB8 PO (20:31)
[2016-11-20] MEDS ORDERED: CEPH-507 PO (20:31)
[2016-11-20 21:53] VITALS: BP 144/76
== END 2016-11-20 21:53 | disposition home or self-care (01) ==
LOC: EDUNIT# 17:55 → ER 17:56
DX: N39.0 Urinary tract infection, site not specified (principal); F32.9 Major depressive disorder, single episode, unspecified; E03.9 Hypothyroidism, unspecified; I10 Essential (primary) hypertension; J43.9 Emphysema, unspecified; J45.909 Unspecified asthma, uncomplicated; Z87.891 Personal history of nicotine dependence; Z79.82 Long term (current) use of aspirin; Z90.710 Acquired absence of both cervix and uterus; Z80.0 Family history of malignant neoplasm of digestive organs
CPT/HCPCS: 36415; 71010; 74176; 80053; 81000; 83605; 83735; 85007; 85025; 85027; 85610; 85730; 87040; 87088; 96361; 96365; 96375

== ENCOUNTER 2017-09-01 00:02 | Emergency (ER) | payer MEDICARE, MEDICAID ==
[~2017-09-01] VITALS: Ht 162.6 cm; Wt 79.4 kg
[~2017-09-01 00:02] MED LIST changes: +CEPH-507 PO; +NAPR-915 PO; -NAPR500T4 PO; +ONDA4TAB8 PO
--- NOTE | 2017-09-01 01:12 | ED Integumentary General ---
General Chief Complaint: Bite-Animal/Human/Insect Stated Complaint: TICK BITE LEFT THIGH,BRUISING & SWELLING Nursing Triage Note: REPORTS SPOUSE MADE HER COME TO ED TO SHOW SITE OF TICK BITE ON LEFT THIGH FROM NOON YESTERDAY. PT DOES NOT OFFER C/O Source: patient, spouse Exam Limitations: no limitations History of Present Illness Date Seen by Provider: Sep 01, 2017 Time Seen by Provider: 01:00 Initial Comments The patient presents to the ER by private conveyance with her significant other and a chief complaint that yesterday afternoon she had a tick stuck on her left thigh when they were out working in the yard. She says she pulled it off and was about the size of the mustard seed. She is not having any fevers or chills but now she is having quite a bit of itching and pain at the site as well as increased pain in all of her joints beyond her normal osteoarthritis. She is not having any fevers, chills, nausea, chest pain, shortness of breath. She has not been on antibiotics recently. She's never had a tick fever before. No other rash. Allergies and Home Medications Allergies Coded Allergies: NKANo Known Allergies (Unverified Allergy, Unknown, 06/01/06) lisinopril (Verified Allergy, Unknown, 03/16/16) Home Medications Aspirin 81 Mg Tablet.dr, 81 MG PO DAILY, (Reported) Famotidine 20 Mg Tablet, 20 MG PO BID, (Reported) Fluticasone Propionate 16 Gm [place].susp, 1 SPRAY NSEACH BID, (Reported) Hydrocodone/Acetaminophen 1 Each Tablet, 1-2 TAB PO Q4H PRN for PAIN, (Reported) L.acidoph & Paracasei,B.lactis 1 Each Capsule, 1 EACH PO TID Prescribed by: GRIFFIN PARKER on 03/27/16 0311 Levothyroxine Sodium 75 Mcg Tablet, 75 MCG PO DAILY, (Reported) Lisinopril 20 Mg Tablet, 20 MG PO DAILY, (Reported) Metoprolol Succinate 50 Mg Tab.er.24h, 50 MG PO DAILY, (Reported) Ondansetron 4 Mg Tab.rapdis, 4 MG SL EVERY 4-6 HOURS PRN for NAUSEA/VOMITING, ( Reported) Ondansetron 4 Mg Tab.rapdis, 4 MG PO Q6H PRN for NAUSEA/VOMITING-1ST LINE Prescribed by: HALINA YADAV on 11/20/162030 Prednisone 20 Mg Tab, 20 MG PO DAILY@1300 Prescribed by: KALPANA NUNES on 03/14/16 1014 Rosuvastatin Calcium 5 Mg Tablet, 5 MG PO DAILY PRN for HS, (Reported) Sertraline HCl 100 Mg Tablet, 100 MG PO DAILY, (Reported) Patient Home Medication List Home Medication List Reviewed: Yes Constitutional: No chills, No diaphoresis, No fever; malaise EENTM: No ear discharge, No ear pain Respiratory: No cough, No short of breath Cardiovascular: No chest pain, No edema Gastrointestinal: No abdominal pain, No constipation, No diarrhea Genitourinary: No discharge, No dysuria Musculoskeletal: No back pain, No gout; joint pain; No joint swelling, No muscle pain Skin: No change in color, No dryness Past Sxafnpu-Czjyve-Gmpwqm Hx Patient Social History Alcohol Use: Denies Use Recreational Drug Use: No Smoking Status: Former Smoker Type Used: Cigarettes Former Smoker, Quit: May 28, 1982 2nd Hand Smoke Exposure: No Recent Foreign Travel: No Contact w/Someone Who Travel: No Recent Infectious Disease Expo: No Recent Hopitalizations: No Immunizations Up To Date Tetanus Booster (TDap): Less than 5yrs PED Vaccines UTD: Yes Date of Pneumonia Vaccine: Feb 20, 2016 Date of Influenza Vaccine: Feb 20, 2016 Seasonal Allergies Seasonal Allergies: No Past Medical History Surgeries: Yes (NECK AND BACK) Hysterectomy, Orthopedic Respiratory: Yes Asthma, COPD Cardiac: Yes Hypertension Neurological: No Reproductive Disorders: No Female Reproductive Disorders: 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, 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 Sexually Transmitted Disease: No HIV/AIDS: No Genitourinary: No Gastrointestinal: No Musculoskeletal: Yes Chronic Back Pain Endocrine: Yes Hypothyroidsim HEENT: No Loss of Vision: Denies Hearing Impairment: Denies Cancer: No Psychosocial: Yes Depression Integumentary: No Blood Disorders: No Family Medical History Arthritis Asthma Cancer of mouth Cardiovascular disease Cataracts Colon cancer Hypertension Myocardial infarction No Family History of: AIDS Abdominal aortic aneurysm David's disease Alcoholism Alzheimer's disease Aphasia Completed stroke Congenital disease Congenital heart disease Coronary thrombosis Cystic fibrosis Deafness or hearing loss Dementia Diabetes mellitus Drug abuse Dysphasia Fibrocystic disease of breast Gastroenteritis Glaucoma Headache disorder Hypercholesterolemia Infertility Kidney disease Neoplasm Not obtainable due to adoption Osteoporosis Parkinson's disease Prostate cancer Psychosocial problem Respiratory disorder Seizure disorder Severe allergy Thyroid disease Tuberculosis Visual disorder Physical Exam Vital Signs Vital Signs - First Documented 09/01/17 00:10 Temp 96.5 Pulse 73 Resp 20 B/P (MAP) 151/78 (102) Pulse Ox 98 O2 Delivery Room Air Capillary Refill : Less Than 3 Seconds General Appearance: WD/WN, no apparent distress HEENT: PERRL/EOMI, pharynx normal Neck: non-tender, normal inspection Cardiovascular: normal peripheral pulses, regular rate, rhythm Respiratory: chest non-tender, no respiratory distress, no accessory muscle use Gastrointestinal: normal bowel sounds, non tender, soft Neurologic/Psychiatric: alert, oriented x 3 Skin: ecchymosis (two round targetoid ecchymoses on the left medial thigh proximally without area of fluctuance, induration or discharge. No rash seen.) Progress/Results/Core Measures Results/Orders My Orders Orders - HALINA YADAV Tick Panel With Lyme Eia (09/01/17 01:06) Vital Signs/I&O 09/01/17 00:10 Temp 96.5 Pulse 73 Resp 20 B/P (MAP) 151/78 (102) Pulse Ox 98 O2 Delivery Room Air Blood Pressure Mean: 102 Progress Progress Note : Time: 01:10 Progress Note We'll start her on doxycycline, probiotics and have her follow-up with the PCP next week. We'll get a tick titer panel. Departure Impression Primary Impression: Tick bite of left lower leg Qualified Codes: S80.862A - Insect bite (nonvenomous), left lower leg, initial encounter; W57.XXXA - Bitten or stung by nonvenomous insect and other nonvenomous arthropods, initial encounter Disposition: 01 HOME, SELF-CARE Condition: Stable Departure-Patient Inst. Decision time for Depature: 01:11 Referrals: NO,LOCAL PHYSICIAN (PCP/Family) Primary Care Physician Patient Instructions: Insect Bites and Stings (DC) Add. Discharge Instructions: cnc supervisor a bottle of Zyrtec or Claritin and take one 10 mg tablet every day for the itching. If you still have itching you can use one tablet of Benadryl 25 mg every 6 hours as needed. Benadryl will cause drowsiness. cnc supervisor the doxycycline and start taking one capsule twice a day for the next 20 days. If you're on the antibiotic then you should also be using probiotics one capsule twice a day. Probiotics can be picked up [id number] at your pharmacy. Call your primary care doctor and request an appointment next week to follow up. Return to the ER if you begin to have neurologic symptoms such as weakness, severe headache, nausea and vomiting or other worrisome symptoms. All discharge instructions reviewed with patient and/or family. Voiced understanding. Scripts Doxycycline Hyclate (Doxycycline Hyclate) 100 Mg Tablet 100 MG PO BID for 20 Days, #40 TAB 0 Refills Prov: HALINA YADAV 09/01/17 Copy Copies To 1: PHILIP YUAN MD, TITUS J Sep 01, 2017 01:12
[2017-09-01] MEDS ORDERED: DOXY100T2 PO (01:13)
[2017-09-01 01:25] VITALS: BP 151/78
== END 2017-09-01 01:25 | disposition home or self-care (01) ==
LOC: EDUNIT# 00:02 → ER 00:05
DX: S80.862A Insect bite (nonvenomous), left lower leg, initial encounter (principal); J44.9 Chronic obstructive pulmonary disease, unspecified; I10 Essential (primary) hypertension; F32.9 Major depressive disorder, single episode, unspecified; E03.9 Hypothyroidism, unspecified; Z79.82 Long term (current) use of aspirin; Z90.710 Acquired absence of both cervix and uterus; Z79.51 Long term (current) use of inhaled steroids; Z79.52 Long term (current) use of systemic steroids; Z88.8 Allergy status to other drugs, medicaments and biological substances; Z87.891 Personal history of nicotine dependence; W57.XXXA Bitten or stung by nonvenomous insect and other nonvenomous arthropods, initial encounter
CPT/HCPCS: 36415; 86618; 86666; 86668; 86757; 99283

== ENCOUNTER 2018-08-09 09:35 | Outpatient (CLI) | payer OTHER, MEDICARE, MEDICAID ==
[~2018-08-09] VITALS: Ht 162.6 cm; Wt 79.4 kg
[~2018-08-09 09:35] MED LIST changes: +AMLO5TAB9 PO; +ASPI-586 PO; +DOXY100T2 PO; +FLUT1BLS IH; +GABA-488 PO; +HYDR-4226 PO; -HYDR-757 PO; +LEVO88TA54 PO
== END 2018-08-09 09:54 | disposition home or self-care (01) ==
LOC: PREOP 09:35
PROVIDERS: ATTEND Surgery
DX: Z01.818 Encounter for other preprocedural examination (principal)

== ENCOUNTER 2018-08-10 11:48 | Day surgery (SDC) | payer MEDICARE, MEDICAID ==
[~2018-08-10] VITALS: Ht 162.6 cm; Wt 79.4 kg
[2018-08-10] MEDS ORDERED: NS IV 500 ML 500 ML ONE (11:56)
[2018-08-10] MEDS ORDERED: NS IV 500 ML 500 ML IV PRN (11:56)
--- NOTE | 2018-08-10 11:58 | Conscious Sedation/ASA ---
Conscious Sedation Pre-Proced Time 11:45 ASA Score 2 For ASA 3 and 4: Consider anesthesia and medical clearance. Also, for patients with a history of failed moderate sedation consider anesthesia. Airway Lungs Heart ASA score ASA 1: a normal healthy patient ASA 2: a patient with a mild systemic disease (mid diabetes, controlled hypertension, obesity ASA 3: a patient with a severe systemic disease that limits activity (angina, COPD, prior Myocardial infarction) ASA 4: a patient with an incapacitating disease that is a constant threat to life (CHF, renal failure) ASA 5: a moribund patient not expected to survive 24 hrs. (ruptured aneurysm) ASA 6: a declared brain- patient whose organs are being harvested. For emergent operations, add the letter E after the classification Mallampati Classification Grade 2 Sedation Plan Analgesia, Amnesia, Plan communicated to team members, Discussed options with patient/fam, Discussed risks with patient/fam The patient is an appropriate candidate to undergo the planned procedure, sedation, and anesthesia. The patient immediately re-assessed prior to indication. DEBI LANG MD August 10, 2018 11:58
--- NOTE | 2018-08-10 11:59 | Progress Note-Pre Operative ---
Pre-Operative Progress Note H&P Reviewed The H&P was reviewed, patient examined and no changes noted. Date Seen by Provider: August 10, 2018 Time Seen by Provider: 11:45 Date H&P Reviewed: August 10, 2018 Time H&P Reviewed: 11:45 Pre-Operative Diagnosis: screening colon DEBI LANG MD August 10, 2018 11:59
[2018-08-10 12:00] VITALS: BP 166/76
[2018-08-10] MEDS ORDERED: ONDANSETRON 4 MG/2 ML (SDV) Z0FRAN IV PRN (12:00)
[2018-08-10] MEDS ORDERED: ACETAMINOPHEN 325 MG TABLET PO PRN (12:00)
[2018-08-10] MEDS ORDERED: morphine INJ 10 MG/ML 1ML (SYR OR VIAL) IV PRN (12:00)
[2018-08-10] MEDS ORDERED: MIDAZOLAM 2 MG/2 ML (VERSED) VIAL IVP ONE (12:00)
[2018-08-10] MEDS ORDERED: LIDOCAINE JELLY 2% 6 ML SYRINGE MM PRN (12:00)
[2018-08-10] MEDS ORDERED: HYDROcodone/APAP 5 MG/325 MG (LORTAB) TAB PO PRN (12:00)
[2018-08-10] MEDS ORDERED: fentaNYL INJECTION 100 MCG/2 ML AMP IVP ONE (12:00)
--- NOTE | 2018-08-10 12:01 | Discharge Inst-Surgical ---
D/C Lap Instructions-RICKEY Follow Up Activity as tolerated High Fiber Diet 25g or more per day Avoid Alcohol, Caffeine, Spicy [place] and Acid foods. Drink 64 fluid oz or more of fluids per day. Symptoms to Report: Fever over 101 degree F, Nausea/Vomiting If any problems/questions: Contact your physician or go to Emergency Room DEBI LANG MD August 10, 2018 12:01
[2018-08-10] MEDS ORDERED: MIDAZOLAM 2 MG/2 ML (VERSED) VIAL ONE ×4 (13:44)
[2018-08-10] MEDS ORDERED: fentaNYL INJECTION 100 MCG/2 ML AMP ONE ×2 (13:45→14:42)
[2018-08-10] MEDS ORDERED: LIDOCAINE JELLY 2% 6 ML SYRINGE ONE (13:45)
--- NOTE | 2018-08-10 15:18 | Progress Note-Post Operative ---
Post-Operative Progess Note Surgeon (s)/Lead Web Application Developer (s) Surgeon DEBI LANG MD Lead Web Application Developer: none Pre-Operative Diagnosis screening colon Post-Operative Diagnosis chronic stage 2 ext and int hemorrhoids Procedure & Operative Findings Date of Procedure 08/10/18 Procedure Performed/Findings colonoscopy Anesthesia Type cs Estimated Blood Loss Estimated blood loss (mL): minimal Specimens/Packing Specimens Removed none DEBI LANG MD August 10, 2018 15:18
[2018-08-10 15:20] VITALS: BP 116/56
[2018-08-10 15:50] VITALS: BP 130/64
[2018-08-10 16:58] VITALS: BP 130/64
--- NOTE | 2018-08-10 23:25 | OPERATIVE REPORT ---
DATE OF SERVICE: 08/10/2018 ATTENDING PRIMARY CARE PHYSICIAN: Dr. Brink. PREOPERATIVE DIAGNOSIS: Screening colonoscopy. POSTOPERATIVE DIAGNOSIS: Mild chronic stage II external and internal hemorrhoids. Remainder of rectum and colon were normal. PROCEDURE: Colonoscopy. SURGEON: Debi Lang MD ANESTHESIA: Conscious sedation. FINDINGS: Mild chronic stage II external and internal hemorrhoids. Remainder of the rectum and colon were normal. There were no polyps or any neoplasms identified. DISPOSITION: The patient tolerated the procedure well. INDICATIONS: The patient is a 78-year-old female known to us. We had initially seen her in February 2016 for right supraorbital swelling of the subcutaneous tissue and was found to have facial edema due to an allergic reaction versus a superficial cellulitis. She was treated conservatively with IV antibiotics and did improve on her own. She was referred over to us for screening colonoscopy. She did have a colonoscopy many years ago; however, cannot remember the exact year and remembers this to be normal. She does not report any symptoms. She does not report any major issues with diarrhea nor constipation. She also does not report any red blood per rectum nor any dark tarry stools. She also does not have any family history of colon cancer. DESCRIPTION OF PROCEDURE: The patient was brought to the endoscopy suite, laid in left lateral decubitus position. After adequate IV pain and sedative medications and conscious sedation anesthesia, a digital rectal examination was performed. There was mild chronic stage II external and internal hemorrhoids, not actively edematous nor inflamed and no bleeding. Normal sphincter tone was felt and there were no palpable masses. The endoscope was then intubated to the anus and rectum gently insufflated. The endoscope was then advanced to the valves of [place] of the rectum with no polyps or any neoplasms identified. Endoscope was then advanced to the sigmoid colon where no diverticulosis identified. The endoscope was then advanced to the remainder of the descending, transverse and ascending colon to the cecum. These segments were normal. There were no polyps or any neoplasms identified throughout the colon or rectum. The endoscope was then slowly withdrawn while taking a second look and suctioning residual air with no additional findings. The patient tolerated the procedure well. We will recommend continued conservative management with a high fiber diet with at least 25 grams of fiber per day as well as significant amounts of water to promote soft stools on a daily basis. She does not need another colonoscopy for another 10 years; however, sooner if she becomes symptomatic. Job ID: [id number] DocumentID: [id number] Dictated Date: 08/10/2018 15:04:34 Burner Hand Date: 08/10/2018 23:24:59 Dictated By: DEBI LANG MD
== END 2018-08-10 16:10 | disposition home or self-care (01) ==
LOC: ENDO 11:48
PROVIDERS: ATTEND Surgery
DX: Z12.11 Encounter for screening for malignant neoplasm of colon (principal); K64.1 Second degree hemorrhoids; I10 Essential (primary) hypertension; K21.9 Gastro-esophageal reflux disease without esophagitis; E78.00 Pure hypercholesterolemia, unspecified; E03.9 Hypothyroidism, unspecified; F32.9 Major depressive disorder, single episode, unspecified; J44.9 Chronic obstructive pulmonary disease, unspecified; M19.91 Primary osteoarthritis, unspecified site; Z79.899 Other long term (current) drug therapy; Z79.82 Long term (current) use of aspirin; Z87.891 Personal history of nicotine dependence

== ENCOUNTER 2019-04-20 19:18 | Emergency (ER) | payer MEDICARE, MEDICAID ==
[~2019-04-20] VITALS: Ht 162 cm; Wt 80.0 kg
[~2019-04-20 19:18] MED LIST changes: -METO-370 PO; +METO50TA7 PO
[2019-04-20] MEDS ORDERED: RX-TRAMADOL 50 MG (ULTRAM) TAB PPK#4 PO STA (19:53)
[2019-04-20] MEDS ORDERED: TRAM-42 PO (19:57)
--- NOTE | 2019-04-20 19:57 | ED Upper Extremity ---
General Chief Complaint: Upper Extremity Stated Complaint: L ARM PAIN Nursing Triage Note: Pt ambulates to FT1 with c/o left upper arm pain x 3 wks. Pt states she had x-rays done 3 wks ago that were unremarkable. PT reports taking tylenol and icy hot for the pain with minimal relief. Nursing Sepsis Screen: No Definite Risk Source: patient Exam Limitations: no limitations History of Present Illness Date Seen by Provider: Apr 20, 2019 Time Seen by Provider: 19:45 Initial Comments Left shoulder pain worse with movement for 3 weeks without known preceding injury. Unable to lift items due to pain in her shoulder. Had x-rays done a primary care and states they were normal. Onset: other (3 weeks) Severity: moderate Pain/Injury Location: left shoulder Method of Injury: unknown Modifying Factors: Worse With Movement Allergies and Home Medications Allergies Coded Allergies: No Known Drug Allergies (Unverified , 08/09/18) Home Medications Amlodipine Besylate 5 Mg Tablet, 5 MG PO DAILY, (Reported) Aspirin 81 Mg Tablet.dr, 81 MG PO DAILY, (Reported) Famotidine 20 Mg Tablet, 20 MG PO BID, (Reported) Fluticasone/Vilanterol 1 Each Blst.w.dev, 1 EACH IH DAILY, (Reported) Gabapentin 300 Mg Capsule, 300 MG PO HS, (Reported) Levothyroxine Sodium 88 Mcg Tablet, 88 MCG PO DAILY, (Reported) Lisinopril 20 Mg Tablet, 20 MG PO DAILY, (Reported) Metoprolol Succinate 50 Mg Tab.er.24h, 50 MG PO DAILY, (Reported) Rosuvastatin Calcium 5 Mg Tablet, 5 MG PO HS, (Reported) Sertraline HCl 100 Mg Tablet, 100 MG PO DAILY, (Reported) Tramadol HCl 50 Mg Tablet, 50 MG PO Q6H PRN for PAIN-MODERATE (5-7) Prescribed by: GRIFFIN APRKER on 04/20/191956 Patient Home Medication List Home Medication List Reviewed: Yes Review of Systems Constitutional: see HPI EENTM: see HPI Respiratory: no symptoms reported Cardiovascular: no symptoms reported Genitourinary: no symptoms reported Musculoskeletal: see HPI, joint pain Skin: no symptoms reported Psychiatric/Neurological: No Symptoms Reported Past Gjjrrgr-Amakel-Gcrvps Hx Patient Social History Alcohol Use: Denies Use Recreational Drug Use: No Smoking Status: Former Smoker Type Used: Cigarettes Former Smoker, Quit: May 28, 1982 2nd Hand Smoke Exposure: Yes Recent Foreign Travel: No Contact w/Someone Who Travel: No Recent Infectious Disease Expo: No Recent Hopitalizations: No Physical Abuse: No Sexual Abuse: No Mistreated: No Fear: No Immunizations Up To Date Tetanus Booster (TDap): Less than 5yrs PED Vaccines UTD: Yes Date of Pneumonia Vaccine: Feb 20, 2016 Date of Influenza Vaccine: Dec 27, 2017 Seasonal Allergies Seasonal Allergies: Yes Past Medical History Surgeries: Yes (NECK AND BACK) Hysterectomy, Orthopedic Respiratory: Yes Asthma, COPD Cardiac: Yes High Cholesterol, Hypertension Neurological: No Reproductive Disorders: No 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, 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 Sexually Transmitted Disease: No HIV/AIDS: No Genitourinary: No Gastrointestinal: Yes Gastroesophageal Reflux Musculoskeletal: Yes Chronic Back Pain Endocrine: Yes Hypothyroidsim HEENT: No (GLASSES) Loss of Vision: Bilateral Hearing Impairment: Denies Cancer: No Psychosocial: Yes Depression Integumentary: No Blood Disorders: No Adverse Reaction/Blood Tranf: No (N/A) Family Medical History Arthritis Asthma Cancer of mouth Cardiovascular disease Cataracts Colon cancer Hypertension Myocardial infarction No Family History of: AIDS Abdominal aortic aneurysm [place]'s disease Alcoholism Alzheimer's disease Aphasia Completed stroke Congenital disease Congenital heart disease Coronary thrombosis Cystic fibrosis Deafness or hearing loss Dementia Diabetes mellitus Drug abuse Dysphasia Fibrocystic disease of breast Gastroenteritis Glaucoma Headache disorder Hypercholesterolemia Infertility Kidney disease Neoplasm Not obtainable due to adoption Osteoporosis Parkinson's disease Prostate cancer Psychosocial problem Respiratory disorder Seizure disorder Severe allergy Thyroid disease Tuberculosis Visual disorder Physical Exam Vital Signs Vital Signs - First Documented 04/20/19 19:37 Temp 36.7 Pulse 78 Resp 17 B/P (MAP) 139/72 (94) Pulse Ox 98 O2 Delivery Room Air Capillary Refill : Less Than 3 Seconds Height, Weight, BMI Height: 5'4.00" Weight: 175lbs. 2.0oz. [id number]; 30.00 BMI Method:Estimated General Appearance: WD/WN, no apparent distress HEENT: PERRL/EOMI, normal ENT inspection Neck: non-tender, full range of motion Respiratory: no respiratory distress, no accessory muscle use Shoulder: normal inspection, limited ROM (positive [place] test), pain Hand: normal inspection, non-tender Neurologic/Psychiatric: alert, normal mood/affect, oriented x 3 Skin: normal color, warm/dry Progress/Results/Core Measures Results/Orders My Orders Orders - GRIFFIN PARKER APRN Rx-Tramadol Hcl (Rx-Ultram) (04/20/19 19:53) Ketorolac Injection (Toradol Injection) (04/20/19 20:00) Orphenadrine Injection (Norflex Injectio (04/20/19 20:00) Vital Signs/I&O 04/20/19 19:37 Temp 36.7 Pulse 78 Resp 17 B/P (MAP) 139/72 (94) Pulse Ox 98 O2 Delivery Room Air Blood Pressure Mean: 94 Departure Impression Primary Impression: Internal derangement of left shoulder Additional Impression: suspect left shoulder labral injury Disposition: HOME, SELF-CARE Condition: Stable Departure-Patient Inst. Decision time for Depature: 19:55 Referrals: NO,LOCAL PHYSICIAN (PCP) Primary Care Physician Patient Instructions: Shoulder Labral Tear Add. Discharge Instructions: 1. Follow-up with your family doctor to discuss getting an MRI of the shoulder. Wear the sling when you're up and about. All discharge instructions reviewed with patient and/or family. Voiced understanding. Scripts Tramadol HCl (Ultram) 50 Mg Tablet 50 MG PO Q6H PRN for PAIN-MODERATE (5-7), #10 TAB Prov: GRIFFIN PARKER APRN 04/20/19 GRIFFIN PARKER APRN Apr 20, 2019 19:57
[2019-04-20] MEDS ORDERED: KETOROLAC 60 MG/2 ML VIAL IM ONE (20:00)
[2019-04-20] MEDS ORDERED: ORPHENADRINE 60 MG/2 ML (NORFLEX) AMP IM ONE (20:00)
[2019-04-20 20:10] VITALS: BP 139/72
== END 2019-04-20 20:12 | disposition home or self-care (01) ==
LOC: EDUNIT# 19:18 → ER 19:19
DX: M24.812 Other specific joint derangements of left shoulder, not elsewhere classified (principal); I10 Essential (primary) hypertension; E78.00 Pure hypercholesterolemia, unspecified; J44.9 Chronic obstructive pulmonary disease, unspecified; E03.9 Hypothyroidism, unspecified; K21.9 Gastro-esophageal reflux disease without esophagitis; F32.9 Major depressive disorder, single episode, unspecified; Z79.82 Long term (current) use of aspirin; Z79.51 Long term (current) use of inhaled steroids; Z87.891 Personal history of nicotine dependence; Z77.22 Contact with and (suspected) exposure to environmental tobacco smoke (acute) (chronic); Z80.0 Family history of malignant neoplasm of digestive organs; Z82.49 Family history of ischemic heart disease and other diseases of the circulatory system; Z80.8 Family history of malignant neoplasm of other organs or systems
CPT/HCPCS: 96372; 99284

== ENCOUNTER 2019-05-28 16:42 | Observation (INO) | payer MEDICARE, MEDICAID ==
[~2019-05-28] VITALS: Ht 162.5 cm; Wt 79.5 kg
[2019-05-28] VITALS (7 sets, daily range): BP systolic 114–145; BP diastolic 59–73
[~2019-05-28 16:42] MED LIST changes: +ACHYD1T PO; -HYDR-3820 PO; +TRAM-42 PO
[2019-05-28] MEDS ORDERED: ASPIRIN 81 MG CHEW (CHILDREN'S ASA) PO ONE (17:00)
[2019-05-28] MEDS: NITROGLYCERIN 0.4 MG SL TABS BTL 25'S SL PRN ×2 (17:03→17:20)
[2019-05-28 17:08] LABS: BASOPHILS % (AUTO) 0 % (0-10); EOSINOPHILS # (AUTO) 0.2 10^3/uL (0.0-0.3); EOSINOPHILS % (AUTO) 1 % (0-10); HEMATOCRIT 40 % (35-52); HEMOGLOBIN 13.4 G/DL (11.5-16.0); LYMPHOCYTES # (AUTO) 1.1 X 10^3 (1.0-4.0); LYMPHOCYTES % (AUTO) 10 % (12-44); MEAN CORPUSCULAR HEMOGLOBIN 30 PG (25-34); MEAN CORPUSCULAR HGB CONC 33 G/DL (32-36); MEAN CORPUSCULAR VOLUME 90 FL (80-99); MEAN PLATELET VOLUME 10.3 FL (7.4-10.4); MONOCYTES # (AUTO) 1.2 X 10^3 (0.0-1.0); MONOCYTES % (AUTO) 10 % (0-12); NEUTROPHILS # (AUTO) 8.8 X 10^3 (1.8-7.8); NEUTROPHILS % (AUTO) 78 % (42-75); PLATELET COUNT 247 10^3/uL (130-400); RED CELL DISTRIBUTION WIDTH 14.4 % (10.0-14.5); WHITE BLOOD COUNT 11.2 10^3/uL (4.3-11.0)
[2019-05-28 17:10] LABS: INR 1.1 (0.8-1.4); PROTHROMBIN TIME PATIENT 14.1 SEC (12.2-14.7)
[2019-05-28 17:23] LABS: ALANINE AMINOTRANSFERASE 36 U/L (0-55); ALBUMIN 4.8 GM/DL (3.2-4.5); ALKALINE PHOSPHATASE 108 U/L (40-136); BILIRUBIN,TOTAL 0.5 MG/DL (0.1-1.0); BUN/CREATININE RATIO 27; CALCIUM 9.4 MG/DL (8.5-10.1); CARBON DIOXIDE 17 MMOL/L (21-32); CHLORIDE 107 MMOL/L (98-107); CREATININE SERUM 1.76 MG/DL (0.60-1.30); GFR ESTIMATED 28; GLUCOSE 107 MG/DL (70-105); MAGNESIUM 2.1 MG/DL (1.6-2.4); POTASSIUM 5.1 MMOL/L (3.6-5.0); SODIUM 136 MMOL/L (135-145); TOTAL PROTEIN 8.2 GM/DL (6.4-8.2)
--- NOTE | 2019-05-28 18:14 | ED Chest Pain ---
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 Onset while walking around [employer] approximately one hour ago. Denies nausea or vomiting but did have increased shortness of air. Does have underlying COPD but states the shortness of breath was worse than typical. Denies sweating or diarrhea. Denies other concerns. Has not had any significant cardiac workup recently but did have nonobstructive heart catheter noted in 2010 with previous echocardiograms as well. 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 Associated Symptoms: No abdominal pain; back pain; No diaphoresis, No dizziness, No fatigue, No fever/chills, No nausea/vomiting; shortness of breath; No weakness (OSKAR UP MD) Allergies and Home Medications Allergies Coded Allergies: No Known Drug Allergies (Unverified , 08/09/18) Home Medications Amlodipine Besylate 5 Mg Tablet, 5 MG PO DAILY, (Reported) Aspirin 81 Mg Tablet.dr, 81 MG PO DAILY, (Reported) Famotidine 20 Mg Tablet, 20 MG PO BID, (Reported) Fluticasone/Vilanterol 1 Each Blst.w.dev, 1 EACH IH DAILY, (Reported) Gabapentin 300 Mg Capsule, 300 MG PO HS, (Reported) Levothyroxine Sodium 88 Mcg Tablet, 88 MCG PO DAILY, (Reported) Lisinopril 20 Mg Tablet, 20 MG PO DAILY, (Reported) Metoprolol Succinate 50 Mg Tab.er.24h, 50 MG PO DAILY, (Reported) Rosuvastatin Calcium 5 Mg Tablet, 5 MG PO HS, (Reported) Sertraline HCl 100 Mg Tablet, 100 MG PO DAILY, (Reported) Tramadol HCl 50 Mg Tablet, 50 MG PO Q6H PRN for PAIN-MODERATE (5-7) Prescribed by: GRIFFIN PARKER on 04/20/191956 Patient Home Medication List Home Medication List Reviewed: Yes (OSKAR UP MD) Review of Systems Review of Systems Constitutional: see HPI; No chills, No fever EENTM: No Symptoms Reported Respiratory: See HPI, SOA With Exertion; Denies Wheezing Cardiovascular: Chest Pain; Denies Edema, Denies Irregular Heart Rate, Denies Lightheadedness Gastrointestinal: No Symptoms Reported Genitourinary: No Symptoms Reported Musculoskeletal: see HPI, back pain; No neck pain Skin: no symptoms reported Psychiatric/Neurological: No Symptoms Reported (OSKAR UP MD) All Other Systems Reviewed Negative Unless Noted: Yes (OSKAR UP MD) Past Ejbklga-Chjjhp-Wzdgip Hx Past Med/Social Hx: Reviewed Nursing Past Med/Soc Hx (OSKAR UP MD) Patient Social History Alcohol Use: Denies Use Recreational Drug Use: No Smoking Status: Former Smoker Type Used: Cigarettes Former Smoker, Quit: May 28, 1982 2nd Hand Smoke Exposure: Yes Recent Foreign Travel: No Contact w/Someone Who Travel: No Recent Infectious Disease Expo: No Recent Hopitalizations: No Physical Abuse: No Sexual Abuse: No Mistreated: No (OSKAR UP MD) Immunizations Up To Date Tetanus Booster (TDap): Less than 5yrs PED Vaccines UTD: Yes Date of Pneumonia Vaccine: Feb 20, 2016 Date of Influenza Vaccine: Dec 27, 2017 (OSKAR UP MD) Seasonal Allergies Seasonal Allergies: Yes (OSKAR UP MD) Past Medical History Surgeries: Yes (NECK AND BACK) Hysterectomy, Orthopedic Respiratory: Yes Asthma, COPD Cardiac: Yes High Cholesterol, Hypertension Neurological: No Reproductive Disorders: No Female Reproductive Disorders: Denies [employer] History: Hysterectomy, Menopausal Sexually Transmitted Disease: No HIV/AIDS: No Genitourinary: No Gastrointestinal: Yes Gastroesophageal Reflux Musculoskeletal: Yes Chronic Back Pain Endocrine: Yes Hypothyroidsim HEENT: No (GLASSES) Loss of Vision: Bilateral Hearing Impairment: Denies Cancer: No Psychosocial: Yes Depression Integumentary: No Blood Disorders: No Adverse Reaction/Blood Tranf: No (N/A) (OSKAR UP MD) Family Medical History Reviewed Nursing Family Hx (OSKAR UP MD) Arthritis Asthma Cancer of mouth Cardiovascular disease Cataracts Colon cancer Hypertension Myocardial infarction Physical Exam Vital Signs Vital Signs - First Documented 05/28/19 05/28/19 16:44 16:53 Temp 36.5 Pulse 97 Resp 20 B/P (MAP) 138/76 (96) Pulse Ox 97 O2 Delivery Room Air O2 Flow Rate 2.00 (JOHAN FELDMAN MD) Vital Signs Capillary Refill : Less Than 3 Seconds (OSKAR UP MD) Height, Weight, BMI Height: 5'4.00" Weight: 175lbs. 2.0oz. 79.483096pv; 29.00 BMI Method:Estimated General Appearance: No Apparent Distress, WD/WN HEENT: PERRL/EOMI, Pharynx Normal Neck: Non Tender, Supple Respiratory: Lungs Clear, Normal Breath Sounds Cardiovascular: Regular Rate, Rhythm, No Murmur Gastrointestinal: Non Tender, Soft Extremity: Normal Range of Motion, Non Tender Neurologic/Psychiatric: Alert, Oriented x3 Skin: Normal Color, Warm/Dry (OSKAR UP MD) Progress/Results/Core Measures Results/Orders Lab Results Laboratory Tests Test 05/28/19 16:48 05/28/19 19:01 05/28/19 19:14 Range/Units White Blood Count 11.2 H 4.3-11.0 10^3/uL Red Blood Count 4.46 4.35-5.85 10^6/uL Hemoglobin 13.4 11.5-16.0 G/DL Hematocrit 40 35-52 % Mean Corpuscular Volume 90 80-99 FL Mean Corpuscular Hemoglobin 30 25-34 PG Mean Corpuscular Hemoglobin Concent 33 32-36 G/DL Red Cell Distribution Width 14.4 10.0-14.5 % Platelet Count 247 130-400 10^3/uL Mean Platelet Volume 10.3 7.4-10.4 FL Neutrophils (%) (Auto) 78 H 42-75 % Lymphocytes (%) (Auto) 10 L 12-44 % Monocytes (%) (Auto) 10 0-12 % Eosinophils (%) (Auto) 1 0-10 % Basophils (%) (Auto) 0 0-10 % Neutrophils # (Auto) 8.8 H 1.8-7.8 X 10^3 Lymphocytes # (Auto) 1.1 1.0-4.0 X 10^3 Monocytes # (Auto) 1.2 H 0.0-1.0 X 10^3 Eosinophils # (Auto) 0.2 0.0-0.3 10^3/uL Basophils # (Auto) 0.0 0.0-0.1 10^3/uL Prothrombin Time 14.1 12.2-14.7 SEC INR Comment 1.1 0.8-1.4 Activated Partial Thromboplast Time 32 24-35 SEC Sodium Level 136 135-145 MMOL/L Potassium Level 5.1 H 3.6-5.0 MMOL/L Chloride Level 107 98-107 MMOL/L Carbon Dioxide Level 17 L 21-32 MMOL/L Anion Gap 12 5-14 MMOL/L Blood Urea Nitrogen 48 H 7-18 MG/DL Creatinine 1.76 H 0.60-1.30 MG/DL Estimat Glomerular Filtration Rate 28 BUN/Creatinine Ratio 27 Glucose Level 107 H 70-105 MG/DL Calcium Level 9.4 8.5-10.1 MG/DL Corrected Calcium 8.5-10.1 MG/DL Magnesium Level 2.1 1.6-2.4 MG/DL Total Bilirubin 0.5 0.1-1.0 MG/DL Aspartate Amino Transf (AST/SGOT) 52 H 5-34 U/L Alanine Aminotransferase (ALT/SGPT) 36 0-55 U/L Alkaline Phosphatase 108 40-136 U/L Myoglobin 357.1 H 10.0-92.0 NG/ML Troponin I < 0.028 < 0.028 <0.028 NG/ML Total Protein 8.2 6.4-8.2 GM/DL Albumin 4.8 H 3.2-4.5 GM/DL Lipase 62 8-78 U/L D-Dimer 0.97 H 0.00-0.49 UG/ML (JOHAN FELDMAN MD) My Orders Orders - JOHAN FELDMAN MD Ondansetron Injection (Zofran Injectio (05/28/19 18:45) Famotidine Injection (Pepcid Injection) (05/28/19 18:45) Lidocaine 2% Viscous 15 Ml (Xylocaine Vi (05/28/19 18:45) Antacid Suspension (Mylanta Suspension (05/28/19 18:45) Troponin I (05/28/19 19:10) Lipase (05/28/19 18:49) Pantoprazole Tablet (Protonix Tablet) (05/28/19 20:00) Enoxaparin Injection (Lovenox Injection) (05/28/19 20:15) (JOHAN FELDMAN MD) Medications Given in ED Current Medications Medications Dose Ordered Sig/Jen Route Start Time Stop Time Status Last Admin Dose Admin Al Hydrox/Mg Hydrox/Simethicone 30 ml ONCE ONCE PO 05/28/19 18:45 05/28/19 18:46 DC 05/28/19 18:58 30 ML Aspirin 324 mg ONCE ONCE PO 05/28/19 17:00 05/28/19 17:01 DC 05/28/19 17:03 324 MG Famotidine 20 mg ONCE ONCE IVP 05/28/19 18:45 05/28/19 18:46 DC 05/28/19 18:57 20 MG Lidocaine HCl 15 ml ONCE ONCE PO 05/28/19 18:45 05/28/19 18:46 DC 05/28/19 18:58 15 ML Nitroglycerin 0.4 mg UD PRN SL 05/28/19 17:00 05/28/19 17:20 0.4 MG Ondansetron HCl 4 mg ONCE ONCE IVP 05/28/19 18:45 05/28/19 18:46 DC 05/28/19 18:57 4 MG Sodium Chloride 1,000 ml @ 0 mls/hr Q0M ONCE IV 05/28/19 18:16 05/28/19 18:26 DC 05/28/19 18:42 0 MLS/HR (JOHAN FELDMAN MD) Vital Signs/I&O 05/28/19 05/28/19 16:44 16:53 Temp 36.5 Pulse 97 Resp 20 B/P (MAP) 138/76 (96) Pulse Ox 97 95 O2 Delivery Room Air Nasal Cannula O2 Flow Rate 2.00 (JOHAN FELDMAN MD) Blood Pressure Mean: 96 Progress Progress Note : Progress Note Seen and evaluated. IV, labs, EKG and chest x-ray ordered. ASA 324 mg by mouth as well as nitroglycerin sublingual. Pain did improve after first tablet but not gone. Repeat nitroglycerin dosing ordered. Monitor patient. (OSKAR UP MD) Progress Note #1: Time: 18:43 Progress Note Care of this patient was assumed from Dr. Up. Labs were reviewed. D- dimer is pending. Chest x-ray was clear. There was no ischemia on the EKG. Patient reports her pain improved from a 10 down to a 5 after 2 nitroglycerin. On reexamination lungs are clear. There is tenderness in the epigastrium and on the anterior chest wall. RUQ and LUQ are nontender. Patient states she has had trouble with heartburn. We will trial a GI cocktail with pepcid. A repeat troponin will be ordered for draw at 19:10, 4 hours after onset of pain. Progress Note #2: Time: 20:06 Progress Note Although patient remains pain free after GI cocktail, her d-dimer is elevated. She also has chronic calf pain and tenderness that could mask symptoms of DVT. I discussed options with patient. Although I feel DVT or PE is rather unlikely, I cannot guarantee it based on her elevated d-dimer. Patient elects admission for observation. We will hydrate her through the night and check a creatinine again in the morning. Hopefully she will be able to undergo CT angiogram at that time. A CT angiogram of bilateral lower extremity venous Doppler exam will be performed in the morning. In the meantime, Lovenox will be used for treatmen t of possible PE/DVT. Patient is established with Dr. Scruggs. We will consult Dr. Scruggs. Dr. Laird has been notified. (JOHAN FELDMAN MD) Initial ECG Impression Date: May 28, 2019 Initial ECG Impression Time: 16:44 Initial ECG Rate: 97 Initial ECG Rhythm: Normal Sinus Comment Sinus rhythm with left axis deviation. Change from previous of 11/11/10 with new leftward axis. No evidence of ST elevation ND. Interpreted by me. (OSKAR UP MD) Diagnostic Imaging Diagonstic Imaging: Xray Plain Films/CT/US/NM/MRI: chest Comments Chest x-ray viewed by me and report reviewed. See report below: NAME: ARMANI CARY [facility] REC#: [id number] PT STATUS: REG ER : 1940 PHYSICIAN: OSKAR UP MD ADMIT DATE: 05/28/19/ER Draft Date of Exam:05/28/19 CHEST 1 VIEW, AP/PA ONLY INDICATION: Chest pain COMPARISON STUDY: Chest from 2017. FINDINGS: Frontal view of the chest demonstrates the lungs to be clear. The heart, mediastinum, and pulmonary vascularity are normal. There are no pleural effusions. Postoperative changes are again seen in the cervical spine. IMPRESSION: Negative chest. Dictated on workstation # [id number] Dict: 05/28/19 1816 Trans: 05/28/19 1825 [facility] [phone] Interpreted by: GAIL MALONEY MD (JOHAN FELDMAN MD) Departure Communication (Admissions) Time/Spoke to Admitting Phy: 19:57 Dr. Tovar Time/Spoke to Consulting Phy: 20:03 Dr. Laird (JOHAN FELDMAN MD) Impression Primary Impression: Chest pain Qualified Codes: R07.9 - Chest pain, unspecified Additional Impressions: Dyspnea Qualified Codes: R06.00 - Dyspnea, unspecified Elevated d-dimer Acute kidney injury Disposition: ADMITTED INPATIENT Condition: Improved Admissions Decision to Admit Reason: Admit from ER (General) Decision to Admit/Date: May 28, 2019 Time/Decision to Admit Time: 19:55 (JOHAN FELDMAN MD) Departure-Patient Inst. Referrals: NO,LOCAL PHYSICIAN (PCP/Family) Primary Care Physician OSKAR UP MD May 28, 2019 18:14 JOHAN FELDMAN MD May 28, 2019 18:38
[2019-05-28] MEDS ORDERED: NS IV 1000 ML 1,000 ML IV ONE (18:16)
--- NOTE | 2019-05-28 18:26 | Diagnostic Imaging Report ---
INDICATION: Chest pain COMPARISON STUDY: Chest from 2017. FINDINGS: Frontal view of the chest demonstrates the lungs to be clear. The heart, mediastinum, and pulmonary vascularity are normal. There are no pleural effusions. Postoperative changes are again seen in the cervical spine. IMPRESSION: Negative chest. Dictated by: Dictated on workstation # [id number]
[2019-05-28] MEDS ORDERED: FAMOTIDINE 20MG/2ML IV (PEPCID) IVP ONE (18:45)
[2019-05-28] MEDS ORDERED: ANTACID SUSP 30 ML UDC (MYLANTA) PO ONE (18:45)
[2019-05-28] MEDS ORDERED: ONDANSETRON 4 MG/2 ML (SDV) Z0FRAN IVP ONE (18:45)
[2019-05-28] MEDS ORDERED: LIDOCAINE 2% VISCOUS 15 ML UDC PO ONE (18:45)
[2019-05-28] MEDS ORDERED: PANTOPRAZOLE 40 MG (PROTONIX) TAB PO ONE (20:00)
[2019-05-28] MEDS ORDERED: ENOXAPARIN 80 MG/0.8 ML (LOVENOX) SYR SC ONE (20:15)
--- NOTE | 2019-05-28 21:00 | NUR ---
ARMANI CARY admitted to room 405-1, with an admitting diagnosis of Chest Pain, Elevated D-Dimer, on 05/28/19 from ER via WC, accompanied. ARMANI CARY introduced to surroundings, call light, bed controls, phone, TV, temperature control, lights, meal times, smoking policy, visitor policy, side rail policy, bathrooms and showers. Patient Rights given to patient in the handbook. ARMANI CARY verbalizes understanding that [facility] is not responsible for the loss or damage to any personal effects or valuables that are kept in the patients posession during their hospitalization. The following Patient Care Plans were discussed with the pt: Discharge Planning, pain control,activity intolerance and lab monitoring. ARMANI CARY verbalizes understanding of Interdisciplinary Patient Education. Patient was informed about the Rapid Response Team and its purpose.
[2019-05-28] MEDS ORDERED: PATIENT MAY USE OWN MEDS, ALL MC SCH (21:45)
[2019-05-28] MEDS ORDERED: morphine INJ 4 MG/ML 1 ML (VIAL/SYRINGE) IV PRN (22:00)
[2019-05-28] MEDS ORDERED: NITROGLYCERIN 0.4 MG SL TABS BTL 25'S SL PRN (22:00)
[2019-05-28] MEDS ORDERED: ONDANSETRON 4 MG/2 ML (SDV) Z0FRAN IV PRN (22:00)
[2019-05-28] MEDS: NS IV 1000 ML 1,000 ML IV SCH (22:50)
[2019-05-29 00:05] VITALS: BP 126/60
[2019-05-29 01:00] VITALS: BP 113/57
[2019-05-29 02:00] VITALS: BP 116/56
[2019-05-29 04:00] VITALS: BP 134/60
[2019-05-29 05:20] LABS: BASOPHILS % (AUTO) 0 % (0-10); EOSINOPHILS # (AUTO) 0.1 10^3/uL (0.0-0.3); EOSINOPHILS % (AUTO) 1 % (0-10); HEMATOCRIT 37 % (35-52); HEMOGLOBIN 11.9 G/DL (11.5-16.0); LYMPHOCYTES # (AUTO) 1.4 X 10^3 (1.0-4.0); LYMPHOCYTES % (AUTO) 18 % (12-44); MEAN CORPUSCULAR HEMOGLOBIN 30 PG (25-34); MEAN CORPUSCULAR HGB CONC 33 G/DL (32-36); MEAN CORPUSCULAR VOLUME 92 FL (80-99); MEAN PLATELET VOLUME 10.1 FL (7.4-10.4); MONOCYTES # (AUTO) 0.9 X 10^3 (0.0-1.0); MONOCYTES % (AUTO) 12 % (0-12); NEUTROPHILS # (AUTO) 5.2 X 10^3 (1.8-7.8); NEUTROPHILS % (AUTO) 69 % (42-75); PLATELET COUNT 180 10^3/uL (130-400); RED CELL DISTRIBUTION WIDTH 14.7 % (10.0-14.5); WHITE BLOOD COUNT 7.6 10^3/uL (4.3-11.0)
[2019-05-29 05:45] LABS: BUN/CREATININE RATIO 29; CALCIUM 8.7 MG/DL (8.5-10.1); CARBON DIOXIDE 15 MMOL/L (21-32); CHLORIDE 115 MMOL/L (98-107); CHOLESTEROL 149 MG/DL (< 200); CREATININE SERUM 1.29 MG/DL (0.60-1.30); GFR ESTIMATED 40; GLUCOSE 112 MG/DL (70-105); HDL CHOLESTEROL 38 MG/DL (40-60); POTASSIUM 4.9 MMOL/L (3.6-5.0); SODIUM 139 MMOL/L (135-145); TRIGLYCERIDES 146 MG/DL (<150); VLDL CHOLESTEROL 29 MG/DL (5-40)
[2019-05-29] MEDS ORDERED: LEVOTHYROXINE 75 MCG (LEVOTHROID) TABLET PO SCH (06:30)
[2019-05-29 07:54] VITALS: BP 127/56
[2019-05-29] MEDS ORDERED: REGADENOSON 0.4 MG/5 ML SYR (LEXISCAN) IV ONE ×2 (08:30→11:53)
--- NOTE | 2019-05-29 08:40 | Consultation-Cardiology ---
HPI-Cardiology Cardiology Consultation Date of Consultation 05/29/19 Date of Admission Time Seen by Provider: 08:10 Indication: Chest pain HPI Patient is a 78 y/o female with hx of HTN, HLP, asthma, COPD. Presented to the ER last night with c/o chest pain. Reports she was walking around at [employer] when she had sudden episode of chest pain. Describes it as sharp, stabbing pain radiating to her back. Associated nausea, dyspnea, and dizziness. States was given SL nitro in the ER with some relief of her pain. Currently denies any chest pain. EKG revealed SR with no acute ST changes. Home Medications & Allergies Allergies: Coded Allergies: No Known Drug Allergies (Unverified , 08/09/18) Home Medication List Reviewed: Yes GQQ-Vxviko-Kgfxck Hx Patient Social History Marital Status: Employed/Student: retired Alcohol Use: Denies Use Recreational Drug Use: No Smoking Status: Former Smoker Former smoker/When Quit: Dec 05, 1983 Type Used: Cigarettes 2nd Hand Smoke Exposure: Yes Recent Foreign Travel: No Recent Infectious Disease Expo: No Recent Hopitalizations: No Immunizations Up To Date Tetanus Booster (TDap): Less than 5yrs Date of Pneumonia Vaccine: Feb 20, 2016 Date of Influenza Vaccine: Dec 27, 2017 Past Medical History HTN, HLP, COPD, asthma Family Medical History Significant Family History: No Pertinent Family Hx Family History: Arthritis Asthma Cancer of mouth Cardiovascular disease Cataracts Colon cancer Hypertension Myocardial infarction No Family History of: AIDS Abdominal aortic aneurysm David's disease Alcoholism Alzheimer's disease Aphasia Completed stroke Congenital disease Congenital heart disease Coronary thrombosis Cystic fibrosis Deafness or hearing loss Dementia Diabetes mellitus Drug abuse Dysphasia Fibrocystic disease of breast Gastroenteritis Glaucoma Headache disorder Hypercholesterolemia Infertility Kidney disease Neoplasm Not obtainable due to adoption Osteoporosis Parkinson's disease Prostate cancer Psychosocial problem Respiratory disorder Seizure disorder Severe allergy Thyroid disease Tuberculosis Visual disorder Review of Systems-General Review of Systems Constitutional: see HPI; No chills, No fever EENTM: see HPI, no symptoms reported; No blurred vision, No double vision Respiratory: see HPI; No cough; dyspnea on exertion; No hemoptysis, No orthopnea, No wheezing Cardiovascular: see HPI, chest pain; No edema, No Hx of Intervention, No syn cope, No vascular heart diseas Gastrointestinal: see HPI; No abdominal pain, No constipation, No diarrhea; nausea Musculoskeletal: see HPI, back pain; No neck pain Skin: no symptoms reported, see HPI Psychiatric/Neurological: No Symptoms Reported, See HPI All Other Systems Reviewed Negative Unless Noted: Yes Reviewed Test Results Reviewed Test Results Lab Laboratory Tests 05/28/19 16:48: White Blood Count 11.2H, Red Blood Count 4.46, Hemoglobin 13.4, Hematocrit 40, Mean Corpuscular Volume 90, Mean Corpuscular Hemoglobin 30, Mean Corpuscular Hemoglobin Concent 33, Red Cell Distribution Width 14.4, Platelet Count 247, Mean Platelet Volume 10.3, Neutrophils (%) (Auto) 78H, Lymphocytes (%) (Auto) 10L, Monocytes (%) (Auto) 10, Eosinophils (%) (Auto) 1, Basophils (%) (Auto) 0, Neutrophils # (Auto) 8.8H, Lymphocytes # (Auto) 1.1, Monocytes # (Auto) 1.2H, Eosinophils # (Auto) 0.2, Basophils # (Auto) 0.0, Prothrombin Time 14.1, INR Comment 1.1, Activated Partial Thromboplast Time 32, Sodium Level 136, Potassium Level 5.1H, Chloride Level 107, Carbon Dioxide Level 17L, Anion Gap 12, Blood Urea Nitrogen 48H, Creatinine 1.76H, Estimat Glomerular Filtration Rate 28, BUN/Creatinine Ratio 27, Glucose Level 107H, Calcium Level 9.4, Corrected Calcium , Magnesium Level 2.1, Total Bilirubin 0.5, Aspartate Amino Transf (AST/SGOT) 52H, Alanine Aminotransferase (ALT/SGPT) 36, Alkaline Phosphatase 108, Myoglobin 357.1H, Troponin I < 0.028, Total Protein 8.2, Albumin 4.8H, Lipase 62 05/28/19 19:01: Troponin I < 0.028 05/28/19 19:14: D-Dimer 0.97H 05/29/19 05:00: White Blood Count 7.6, Red Blood Count 3.97L, Hemoglobin 11.9, Hematocrit 37, Mean Corpuscular Volume 92, Mean Corpuscular Hemoglobin 30, Mean Corpuscular Hemoglobin Concent 33, Red Cell Distribution Width 14.7H, Platelet Count 180, Mean Platelet Volume 10.1, Neutrophils (%) (Auto) 69, Lymphocytes (%) (Auto) 18, Monocytes (%) (Auto) 12, Eosinophils (%) (Auto) 1, Basophils (%) (Auto) 0, Neutrophils # (Auto) 5.2, Lymphocytes # (Auto) 1.4, Monocytes # (Auto) 0.9, Eosinophils # (Auto) 0.1, Basophils # (Auto) 0.0, Sodium Level 139, Potassium Level 4.9, Chloride Level 115H, Carbon Dioxide Level 15L, Anion Gap 9, Blood Urea Nitrogen 38H, Creatinine 1.29, Estimat Glomerular Filtration Rate 40, BUN/Creatinine Ratio 29, Glucose Level 112H, Calcium Level 8.7, Troponin I < 0.028, Triglycerides Level 146, Cholesterol Level 149, LDL Cholesterol Direct 98, VLDL Cholesterol 29, HDL Cholesterol 38L ECG Impression ECG Initial ECG Rhythm: Normal Sinus Physical Exam Physical Exam Vital Signs Vital Signs - First Documented 05/28/19 05/28/19 16:44 16:53 Temp 36.5 Pulse 97 Resp 20 B/P (MAP) 138/76 (96) Pulse Ox 97 O2 Delivery Room Air O2 Flow Rate 2.00 Capillary Refill : Less Than 3 Seconds Height, Weight, BMI Height: 5'4.00" Weight: 175lbs. 2.0oz. 79.821810gc; 30.10 BMI Method:Estimated General Appearance: No Apparent Distress, WD/WN HEENT: PERRL/EOMI, Pharynx Normal Neck: Non Tender, Supple Respiratory: Lungs Clear, Normal Breath Sounds Cardiovascular: Regular Rate, Rhythm, No Murmur Gastrointestinal: Non Tender, Soft Back: No CVA Tenderness Extremity: Normal Range of Motion, Non Tender, No Pedal Edema Neurologic/Psychiatric: Alert, Oriented x3 Skin: Normal Color, Warm/Dry A/P-Cardiology Admission Diagnosis Chest pain Dyspnea HTN HLP Assessment/Plan Chest pain, nonspecific etiology, EKG reveals no acute ST changes, cardiac enzymes are negative. Was given SL nitro in ER with some resolution of symptoms. Has multiple risk factors for underlying CAD, last workup done in 2010. Planning for stress test this morning. Will keep pt NPO. Dyspnea, angina equivalent, planning for stress test this morning. Minimal nonobstructive coronary artery disease per cardiac catheterization in October 2010, continue to monitor. Hypertension, restart home BP medications and continue to monitor. Hyperlipidemia, continue to monitor. History of syncope with negative tilt table test, no further syncopal episodes. Continue to monitor History of TIA, unknown source, no further episodes were reported. Continue to monitor Mild bilateral carotid stenosis, last ultrasound was done in March 2019, continue to monitor. Asthma/COPD, followed and managed by primary care physician Hypothyroidism., Followed and managed by primary care physician Gastroesophageal reflux disease Thank you for allowing us to participate in the management of Ms. Serna. This is Pat Padilla PA-C, as a scribe for . This is Dr. Scruggs, I have seen and evaluated the patient with Pat, reviewed the note, examined and interviewed the patient. In summary this is a 78-year-old lady admitted with chest pain, has mild coronary artery disease, has history of hypertension. Appeared to be referred to supple chest pain, cardiac enzymes were negative, EKG that showed any acute changes, planning to proceed with stress test, Monitor blood pressure and lipids Clinical Quality Measures AMI/AHF: ASA po Prior to arrival: No DVT/VTE Risk/Contraindication: Risk Factor Score Per Nursin RFS Level Per Nursing on Admit: 3=High PAT NAVARRO May 29, 2019 08:40 TEJA SCRUGGS MD May 29, 2019 10:43
[2019-05-29] MEDS: NS IV 1000 ML 1,000 ML IV SCH (08:52)
[2019-05-29] MEDS ORDERED: SERTRALINE 100 MG (ZOLOFT) TAB PO SCH (09:00)
[2019-05-29] MEDS ORDERED: meTOproloL SUCCINATE 50 MG (TOPROL XL) TAB PO SCH (09:00)
[2019-05-29] MEDS ORDERED: ASPIRIN E.C. 81 MG (ECOTRIN) TAB PO SCH (09:00)
[2019-05-29] MEDS ORDERED: amLODIPine 5 MG (NORVASC) TAB PO SCH (09:00)
[2019-05-29] MEDS ORDERED: lisINopril 20 MG (PRINIVIL) TABLET PO SCH (09:00)
[2019-05-29] MEDS ORDERED: PANTOPRAZOLE 40 MG (PROTONIX) TAB PO SCH (09:00)
--- NOTE | 2019-05-29 09:28 | NUR ---
Morning meds held due to NPO status for procedure.
--- NOTE | 2019-05-29 10:16 | History & Physical-Hospitalist ---
History of Present Illness HPI/Chief Complaint Pt is a 81yoCF with a PMH of HTN, hypothyroidism, past tobacco abuse who presented to the ER due to chest pain. She was walking through [place] when she developed chest pain across her chest and through her back. She was nauseated with this as well. She was SOB but states she is always short of breath due to her COPD and didn't think it was much worse. She had no radiation of pain. She has no other complaints and she has had no recurrence of pain overnight. She is currently NPO for a stress test today. Date Seen 05/29/19 Time Seen by a Provider: 10:06 Attending Physician Deb Tovar MD PCP Johnson Garcia MD Referring Physician Date of Admission May 28, 2019 at 19:57 Home Medications & Allergies Home Medications Reviewed patient Home Medication Reconciliation performed by pharmacy medication reconciliations log data technician and/or nursing. Patients Allergies have been reviewed. Allergies Allergies Coded Allergies No Known Drug Allergies (Unverified08/09/18) Past Qusmceh-Mqrtbq-Kqbfaz Hx Past Med/Social Hx: Reviewed Nursing Past Med/Soc Hx Patient Social History Marrital Status: Employed/Student: retired Alcohol Use: Denies Use Recreational Drug Use: No Smoking Status: Former Smoker Former Smoker, Quit: May 28, 1982 Type Used: Cigarettes 2nd Hand Smoke Exposure: Yes Recent Foreign Travel: No Contact w/other who traveled: No Recent Hopitalizations: No Recent Infectious Disease Expo: No Immunizations Up To Date Tetanus Booster (TDap): Less than 5yrs Pediatric: Yes Date of Pneumonia Vaccine: Feb 20, 2016 Date of Influenza Vaccine: Dec 27, 2017 Seasonal Allergies Seasonal Allergies: Yes Past Medical History Surgeries: Hysterectomy, Orthopedic Cardiac: High Cholesterol, Hypertension : No Reproductive: No Sexually Transmitted Disease: No HIV/AIDS: No Female Reproductive Disorders: Denies Hysterectomy, Menopausal Gastrointestinal: Gastroesophageal Reflux Musculoskeletal: Chronic Back Pain Endocrine: Hypothyroidsim Loss of Vision: Bilateral Hearing Impairment: Denies Psychosocial: Depression History of Blood Disorders: No Adverse Reaction to Blood Mora: No (N/A) Family History Reviewed Nursing Family Hx Arthritis Asthma Cancer of mouth Cardiovascular disease Cataracts Colon cancer Hypertension Myocardial infarction No Family History of: AIDS Abdominal aortic aneurysm [place]'s disease Alcoholism Alzheimer's disease Aphasia Completed stroke Congenital disease Congenital heart disease Coronary thrombosis Cystic fibrosis Deafness or hearing loss Dementia Diabetes mellitus Drug abuse Dysphasia Fibrocystic disease of breast Gastroenteritis Glaucoma Headache disorder Hypercholesterolemia Infertility Kidney disease Neoplasm Not obtainable due to adoption Osteoporosis Parkinson's disease Prostate cancer Psychosocial problem Respiratory disorder Seizure disorder Severe allergy Thyroid disease Tuberculosis Visual disorder No Pertinent Family Hx Review of Systems Constitutional: no symptoms reported; No diaphoresis EENTM: no symptoms reported Respiratory: short of breath (chronic) Cardiovascular: chest pain; No edema, No Hx of Intervention, No palpitations, No syncope Gastrointestinal: No abdominal pain, No diarrhea; nausea; No vomiting Genitourinary: no symptoms reported Musculoskeletal: no symptoms reported Skin: no symptoms reported Psychiatric/Neurological: No Symptoms Reported Physical Exam Physical Exam Vital Signs Vital Signs - First Documented 05/28/19 05/28/19 16:44 16:53 Temp 36.5 Pulse 97 Resp 20 B/P (MAP) 138/76 (96) Pulse Ox 97 O2 Delivery Room Air O2 Flow Rate 2.00 Capillary Refill : Less Than 3 Seconds Height, Weight, BMI Height: 5'4.00" Weight: 175lbs. 2.0oz. 79.029427fp; 30.10 BMI Method:Estimated General Appearance: No Apparent Distress, WD/WN HEENT: PERRL/EOMI, Moist Mucous Membranes; No Scleral Icterus (L), No Scleral Icterus (R) Neck: Normal Inspection, Supple Respiratory: Chest Non Tender, Lungs Clear, No Accessory Muscle Use, No Respiratory Distress Cardiovascular: Regular Rate, Rhythm, No Murmur Gastrointestinal: Normal Bowel Sounds, Non Tender, Soft Rectal: Deferred Extremity: Normal Capillary Refill, No Calf Tenderness, No Pedal Edema Neurologic/Psychiatric: Alert, Oriented x3, Normal Mood/Affect; No Aphasia, No Facial Droop Skin: Normal Color, Warm/Dry Results Results/Procedures Labs Laboratory Tests 05/28/19 16:48 05/29/19 05:00 Patient resulted labs reviewed. Imaging Date of Exam:05/28/19 CHEST 1 VIEW, AP/PA ONLY INDICATION: Chest pain COMPARISON STUDY: Chest from 2017. FINDINGS: Frontal view of the chest demonstrates the lungs to be clear. The heart, mediastinum, and pulmonary vascularity are normal. There are no pleural effusions. Postoperative changes are again seen in the cervical spine. IMPRESSION: Negative chest. Assessment/Plan Admission Diagnosis Chest Pain Admission Status: Observation Assessment and Plan Chest pain Negative Troponins Cardiology consulted, appreciate recs Negative CTA chest, negative bilateral lower extremity dopplers Stress negative DC home with return precautions Clinical Quality Measures AMI/AHF: ASA po Prior to arrival: No DVT/VTE Risk/Contraindication: Risk Factor Score Per Nursin RFS Level Per Nursing on Admit: 3=High TREY NO MD May 29, 2019 10:16
--- NOTE | 2019-05-29 10:55 | Diagnostic Imaging Report ---
PROCEDURE: US Venous Lower Ext Carlos. TECHNIQUE: Multiple Real-time grayscale images were obtained over the lower extremities in various projections, bilaterally. Additional duplex Doppler and color Doppler images were also obtained. INDICATION: Chest pain and elevated d-dimer. FINDINGS: There is no evidence of right or left lower extremity DVT. Both lower extremity deep venous systems demonstrate normal compressibility with normal response to augmentation and Valsalva. No fluid collection or mass is seen. IMPRESSION: No evidence of right or left lower extremity DVT. Dictated by: Dictated on workstation # [id number]
[2019-05-29 13:10] VITALS: BP 173/89
[2019-05-29] MEDS ORDERED: IOHEXOL 350 MG/ML 100 ML (OMNIPAQUE 350) VIAL IV ONE (13:30)
[2019-05-29] MEDS ORDERED: NS 100 ML (IVPB) BAG IV ONE (13:30)
[2019-05-29] MEDS ORDERED: CATHETER FLUSH 10 ML SYR IV PRN (13:30)
[2019-05-29] MEDS ORDERED: HOLD METFORMIN - RECEIVED CONTRAST 20 ML VIAL IV SCH (13:30)
--- NOTE | 2019-05-29 14:04 | Diagnostic Imaging Report ---
PROCEDURE: CT angiography of the chest with contrast. TECHNIQUE: Multiple contiguous axial images were obtained through the chest after uneventful bolus administration of intravenous contrast. 3D reconstructed CTA MIP acquisitions were also performed. Auto Exposure Controls were utilized during the CT exam to meet ALARA standards for radiation dose reduction. INDICATION: Chest pain radiating to the back. COMPARISON: No prior studies are available for comparison. FINDINGS: The thoracic aorta is normal in caliber. No dissection is identified. The pulmonary arterial system is without evidence of thromboembolism. No filling defects are seen within central, lobar, or segmental branches. No axillary lymphadenopathy is identified. No definite mediastinal or hilar lymphadenopathy is identified. There is no pericardial or pleural fluid detected. Central airways appear patent. No pulmonary mass or infiltrate is seen. There is some minimal subpleural scarring in the left lower lobe and lingula. The upper abdomen demonstrates low density in the upper pole of right kidney, not entirely included on this study but most consistent with a cyst. IMPRESSION: No evidence of thoracic aortic dissection or pulmonary embolism. No acute feature is identified. Dictated by: Dictated on workstation # [id number]
--- NOTE | 2019-05-29 14:46 | Discharge Inst-Simple/Standard ---
Discharge Inst-Standard Patient Instructions/Follow Up Plan of Care/Instructions/FU: Please continue to take your medications as written. Please follow up with your PCP in the next week. Activity as Tolerated: Yes Discharge Diet: No Restrictions Return to The Hospital For: Chest pain, shortness of breath, if you feel you are getting worse. TREY NO MD May 29, 2019 14:46
[2019-05-29] MEDS ORDERED: ROSUVASTATIN 5 MG (CRESTOR) TABLET PO SCH (21:00)
[2019-05-29] MEDS ORDERED: GABAPENTIN 300 MG (NEURONTIN) CAP PO SCH (21:00)
--- NOTE | 2019-05-31 16:44 | STRESS TEST ---
DATE OF SERVICE: 05/29/2019 LEXISCAN MYOVIEW STRESS TEST REFERRING PHYSICIAN: Dr. Garcia and Dr. Tovar Baseline heart rate is 75. Baseline blood pressure is 165/77. Baseline EKG is sinus rhythm with no ischemic changes. In summary, the patient was injected with 10.04 mCi of technetium-99 Myoview and the resting images were obtained. Then, the patient received 0.4 mg of Lexiscan followed by 29.1 mCi of technetium-99 Myoview. Throughout the test, there were no EKG changes. The resting and stress images were reviewed and compared in the short axis, horizontal long axis and vertical long axis views. Review of the images showed breast attenuation with typical female pattern. No significant ischemia or infarction. SSS is 4, SDS 4, TID value 0.98. On the gated images, the left ventricle appeared to be in normal size with normal contractility. Calculated ejection fraction is 70%. CONCLUSION: 1. The patient tolerated Lexiscan well. 2. Breast attenuation affecting the quality of the images. There is overall no significant ischemia or infarction on SPECT images. 3. Normal left ventricular size with normal contractility. Calculated ejection fraction is 70%. Job ID: [id number] DocumentID: [id number] Dictated Date: 05/31/2019 15:04:22 Roller Leveler Operator Date: 05/31/2019 16:43:26 Dictated By: TEJA KING MD
== END 2019-05-29 15:42 | disposition home or self-care (01) ==
LOC: EDUNIT# 16:42 → ER 16:43 → 4TH 19:57
PROVIDERS: ADMIT Internal Medicine; ATTEND Internal Medicine
DX: R07.9 Chest pain, unspecified (principal); R06.00 Dyspnea, unspecified; N17.9 Acute kidney failure, unspecified; J44.9 Chronic obstructive pulmonary disease, unspecified; I10 Essential (primary) hypertension; I65.23 Occlusion and stenosis of bilateral carotid arteries; K21.9 Gastro-esophageal reflux disease without esophagitis; G89.29 Other chronic pain; M54.9 Dorsalgia, unspecified; E03.9 Hypothyroidism, unspecified; E78.5 Hyperlipidemia, unspecified; F32.9 Major depressive disorder, single episode, unspecified; Z79.82 Long term (current) use of aspirin; Z79.899 Other long term (current) drug therapy; Z87.891 Personal history of nicotine dependence; Z86.73 Personal history of transient ischemic attack (TIA), and cerebral infarction without residual deficits; Z90.710 Acquired absence of both cervix and uterus; Z80.2 Family history of malignant neoplasm of other respiratory and intrathoracic organs; Z80.0 Family history of malignant neoplasm of digestive organs; Z82.61 Family history of arthritis; Z83.6 Family history of other diseases of the respiratory system
CPT/HCPCS: 36415; 71045; 71275; 78452; 80048; 80053; 80061; 83690; 83735; 83874; 84484; 85025; 85379; 85610; 85730; 93005; 93017; 93041; 93970; G0378

== ENCOUNTER 2019-06-15 20:22 | Emergency (ER) | payer MEDICARE, MEDICAID ==
[~2019-06-15] VITALS: Ht 162.6 cm; Wt 81.8 kg
[2019-06-15 20:51] LABS: BASOPHILS % (AUTO) 0 % (0-10); EOSINOPHILS # (AUTO) 0.1 10^3/uL (0.0-0.3); EOSINOPHILS % (AUTO) 1 % (0-10); HEMATOCRIT 34 % (35-52); HEMOGLOBIN 11.3 G/DL (11.5-16.0); LYMPHOCYTES # (AUTO) 1.5 X 10^3 (1.0-4.0); LYMPHOCYTES % (AUTO) 30 % (12-44); MEAN CORPUSCULAR HEMOGLOBIN 30 PG (25-34); MEAN CORPUSCULAR HGB CONC 33 G/DL (32-36); MEAN CORPUSCULAR VOLUME 91 FL (80-99); MEAN PLATELET VOLUME 9.8 FL (7.4-10.4); MONOCYTES # (AUTO) 0.8 X 10^3 (0.0-1.0); MONOCYTES % (AUTO) 15 % (0-12); NEUTROPHILS # (AUTO) 2.6 X 10^3 (1.8-7.8); NEUTROPHILS % (AUTO) 53 % (42-75); PLATELET COUNT 201 10^3/uL (130-400); RED CELL DISTRIBUTION WIDTH 14.5 % (10.0-14.5); WHITE BLOOD COUNT 4.9 10^3/uL (4.3-11.0)
[2019-06-15] MEDS ORDERED: cefTRIAXone FOR IV USE 1,000 MG in WATER (STERILE) FOR INJECTION 10 ML IV ONE (21:00)
[2019-06-15 21:06] LABS: INR 1.1 (0.8-1.4); PROTHROMBIN TIME PATIENT 14.9 SEC (12.2-14.7)
[2019-06-15 21:10] LABS: ALBUMIN 4.2 GM/DL (3.2-4.5); BILIRUBIN,TOTAL 0.3 MG/DL (0.1-1.0); CREATININE SERUM 1.4 MG/DL (0.60-1.30); POTASSIUM 3.9 MMOL/L (3.6-5.0); TOTAL PROTEIN 7.2 GM/DL (6.4-8.2)
[2019-06-15 21:28] VITALS: BP 146/69
--- NOTE | 2019-06-15 21:30 | Diagnostic Imaging Report ---
INDICATION: Cough. Correlation is made to CT examination from 05/29/2019. FINDINGS: No new pulmonary infiltrate or consolidation is evident. There is no evidence of an effusion. There is no pneumothorax. Heart size and mediastinal contours appear stable. Pulmonary vascularity appears appropriate. There appear to be previous surgical changes of anterior cervical discectomy and fusion. IMPRESSION: No radiographic evidence of an acute cardiopulmonary process. Dictated by: Dictated on workstation # [id number]
--- NOTE | 2019-06-15 21:59 | ED General ---
General Chief Complaint: Respiratory Problems Stated Complaint: COUGH, COVID EXP Nursing Triage Note: Pt to room #9 via [facility] ems cart from home with c/o cough, fever, et SOA. Upon arrival initial O2 sat 98% via RA with no resp. distress noted. Pt reports she presented to this ED d/t "my made me come." Pt reports cough for approx x2 months. Pt reports her great grandson test positive for COVIF19 on 06/09/19. Pt reports hx COPD et asthma. Pt reports erythema to L et R calf appeared on 06/14/19 after taking a shower. Area warm to touch. Nursing Sepsis Screen: Possible Severe Sepsis Risk Source of Information: Patient, EMS Exam Limitations: No Limitations History of Present Illness Date Seen by Provider: Jun 15, 2019 Time Seen by Provider: 20:23 Initial Comments This 78-year-old woman presents to the emergency room with complaints of fever and cough. Her cough is actually a fairly chronic condition. She indicates it may have worsened slightly recently. She reports temperature 103.3 at home. She was afebrile for EMS and on arrival. She has COPD and asthma. She has been on home isolation since June 08 because of exposure to her grandson who tested positive for COVID-19. She has patches of warm erythema on her left lower leg and right lower leg. These areas were noted last night. Associated Systoms: No Denies Symptoms Allergies and Home Medications Allergies Coded Allergies: No Known Drug Allergies (Unverified , 08/09/18) Home Medications Amlodipine Besylate 5 Mg Tablet, 5 MG PO DAILY, (Reported) Aspirin 81 Mg Tablet.dr, 81 MG PO DAILY, (Reported) Cefdinir 300 Mg Capsule, 300 MG PO BID Prescribed by: JOHAN ROMERO on 06/15/192248 Famotidine 20 Mg Tablet, 20 MG PO BID, (Reported) Fluticasone/Vilanterol 1 Each Blst.w.dev, 1 EACH IH DAILY, (Reported) Gabapentin 300 Mg Capsule, 300 MG PO HS, (Reported) Levothyroxine Sodium 88 Mcg Tablet, 88 MCG PO DAILY, (Reported) Lisinopril 20 Mg Tablet, 20 MG PO DAILY, (Reported) Metoprolol Succinate 50 Mg Tab.er.24h, 50 MG PO DAILY, (Reported) Rosuvastatin Calcium 5 Mg Tablet, 5 MG PO HS, (Reported) Sertraline HCl 100 Mg Tablet, 100 MG PO DAILY, (Reported) Tramadol HCl 50 Mg Tablet, 50 MG PO Q6H PRN for PAIN-MODERATE (5-7) Prescribed by: GRIFFIN PARKER on 04/20/191956 Patient Home Medication List Home Medication List Reviewed: Yes Review of Systems Review of Systems Constitutional: see HPI EENTM: no symptoms reported Respiratory: see HPI Cardiovascular: no symptoms reported Gastrointestinal: no symptoms reported Genitourinary: no symptoms reported : No Musculoskeletal: no symptoms reported Skin: see HPI Psychiatric/Neurological: No Symptoms Reported Hematologic/Lymphatic: No Symptoms Reported Past Tgbdepw-Itusow-Ohgons Hx Past Med/Social Hx: Reviewed Nursing Past Med/Soc Hx Patient Social History Type Used: Cigarettes Former Smoker, Quit: May 28, 1982 2nd Hand Smoke Exposure: Yes Recent Foreign Travel: No Contact w/Someone Who Travel: No Recent Infectious Disease Expo: No Recent Hopitalizations: No Immunizations Up To Date Tetanus Booster (TDap): Less than 5yrs PED Vaccines UTD: Yes Date of Pneumonia Vaccine: Feb 20, 2016 Date of Influenza Vaccine: Dec 27, 2017 Seasonal Allergies Seasonal Allergies: Yes Past Medical History Surgeries: Yes (NECK AND BACK) Hysterectomy, Orthopedic Respiratory: Yes Asthma, COPD Cardiac: Yes High Cholesterol, Hypertension Neurological: No Reproductive Disorders: No Female Reproductive Disorders: Denies 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: Hysterectomy, Menopausal Sexually Transmitted Disease: No HIV/AIDS: No Genitourinary: No Gastrointestinal: Yes Gastroesophageal Reflux Musculoskeletal: Yes Chronic Back Pain Endocrine: Yes Hypothyroidsim HEENT: No (GLASSES) Loss of Vision: Bilateral Hearing Impairment: Denies Cancer: No Psychosocial: Yes Depression Integumentary: No Blood Disorders: No Adverse Reaction/Blood Tranf: No (N/A) Family Medical History Arthritis Asthma Cancer of mouth Cardiovascular disease Cataracts Colon cancer Hypertension Myocardial infarction No Family History of: AIDS Abdominal aortic aneurysm [place]'s disease Alcoholism Alzheimer's disease Aphasia Completed stroke Congenital disease Congenital heart disease Coronary thrombosis Cystic fibrosis Deafness or hearing loss Dementia Diabetes mellitus Drug abuse Dysphasia Fibrocystic disease of breast Gastroenteritis Glaucoma Headache disorder Hypercholesterolemia Infertility Kidney disease Neoplasm Not obtainable due to adoption Osteoporosis Parkinson's disease Prostate cancer Psychosocial problem Respiratory disorder Seizure disorder Severe allergy Thyroid disease Tuberculosis Visual disorder No Pertinent Family Hx Physical Exam-Suspected Sepsis Physical Exam Vital Signs Vital Signs - First Documented 3/26/20 20:25 Temp 37.2 Pulse 98 Resp 18 B/P (MAP) 125/78 (94) Pulse Ox 98 O2 Delivery Room Air Capillary Refill : Less Than 3 Seconds Blood Pressure Mean: 94 Height, Weight, BMI Height: 5'4.00" Weight: 175lbs. 2.0oz. 79.330882us; 30.00 BMI Method:Estimated General Appearance: No Apparent Distress, WD/WN HEENT: PERRL/EOMI, Normal ENT Inspection Neck: Normal Inspection Respiratory: Lungs Clear, Normal Breath Sounds, No Accessory Muscle Use, No Respiratory Distress Cardiovascular: Regular Rate, Rhythm, No Edema, No Murmur Gastrointestinal: Normal Bowel Sounds, Non Tender, Soft Extremity: No Pedal Edema, Other (patches of warm erythema on the left calf and left castillo as well as a smaller patch on the right calf. 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 Norm as Tested Skin: normal color, warm/dry Focused Exam Lactate Level 06/15/19 20:37: Lactic Acid Level 1.53 Lactic Acid Level Progress/Results/Core Measures Suspected Sepsis Recent Fever Within 48 Hours: Yes Infection Criteria Present: Suspected New Infection New/Unexplained Altered Menta: No Sepsis Screen: Possible Severe Sepsis Risk SIRS Temperature: Pulse: 95 Respiratory Rate: 18 Laboratory Tests 06/15/19 20:37: White Blood Count 4.9 Blood Pressure 146 /69 Mean: 94 06/15/19 20:37: Lactic Acid Level 1.53 Laboratory Tests 06/15/19 20:37: Creatinine 1.40H, INR Comment 1.1, Platelet Count 201, Total Bilirubin 0.3 Results/Orders Lab Results Laboratory Tests Test 06/15/19 20:37 06/15/19 20:44 06/15/19 22:08 Range/Units White Blood Count 4.9 4.3-11.0 10^3/uL Red Blood Count 3.73 L 4.35-5.85 10^6/uL Hemoglobin 11.3 L 11.5-16.0 G/DL Hematocrit 34 L 35-52 % Mean Corpuscular Volume 91 80-99 FL Mean Corpuscular Hemoglobin 30 25-34 PG Mean Corpuscular Hemoglobin Concent 33 32-36 G/DL Red Cell Distribution Width 14.5 10.0-14.5 % Platelet Count 201 130-400 10^3/uL Mean Platelet Volume 9.8 7.4-10.4 FL Neutrophils (%) (Auto) 53 42-75 % Lymphocytes (%) (Auto) 30 12-44 % Monocytes (%) (Auto) 15 H 0-12 % Eosinophils (%) (Auto) 1 0-10 % Basophils (%) (Auto) 0 0-10 % Neutrophils # (Auto) 2.6 1.8-7.8 X 10^3 Lymphocytes # (Auto) 1.5 1.0-4.0 X 10^3 Monocytes # (Auto) 0.8 0.0-1.0 X 10^3 Eosinophils # (Auto) 0.1 0.0-0.3 10^3/uL Basophils # (Auto) 0.0 0.0-0.1 10^3/uL Prothrombin Time 14.9 H 12.2-14.7 SEC INR Comment 1.1 0.8-1.4 Activated Partial Thromboplast Time 33 24-35 SEC D-Dimer 0.42 0.00-0.49 UG/ML Sodium Level 138 135-145 MMOL/L Potassium Level 3.9 3.6-5.0 MMOL/L Chloride Level 109 H 98-107 MMOL/L Carbon Dioxide Level 18 L 21-32 MMOL/L Anion Gap 11 5-14 MMOL/L Blood Urea Nitrogen 28 H 7-18 MG/DL Creatinine 1.40 H 0.60-1.30 MG/DL Estimat Glomerular Filtration Rate 37 BUN/Creatinine Ratio 20 Glucose Level 125 H 70-105 MG/DL Lactic Acid Level 1.53 0.50-2.00 MMOL/L Calcium Level 9.0 8.5-10.1 MG/DL Corrected Calcium 8.8 8.5-10.1 MG/DL Total Bilirubin 0.3 0.1-1.0 MG/DL Aspartate Amino Transf (AST/SGOT) 28 5-34 U/L Alanine Aminotransferase (ALT/SGPT) 26 0-55 U/L Alkaline Phosphatase 99 40-136 U/L C-Reactive Protein High Sensitivity 0.44 0.00-0.50 MG/DL Total Protein 7.2 6.4-8.2 GM/DL Albumin 4.2 3.2-4.5 GM/DL Group A Streptococcus Screen NEGATIVE NEGATIVE Urine Color YELLOW Urine Clarity CLEAR Urine pH 5.5 5-9 Urine Specific [place] <=1.005 1.016-1.022 Urine Protein NEGATIVE NEGATIVE Urine Glucose (UA) NEGATIVE NEGATIVE Urine Ketones NEGATIVE NEGATIVE Urine Nitrite NEGATIVE NEGATIVE Urine Bilirubin NEGATIVE NEGATIVE Urine Urobilinogen 0.2 < = 1.0 MG/DL Urine Leukocyte Esterase 1+ H NEGATIVE Urine RBC (Auto) TRACE-I NEGATIVE Urine RBC RARE /HPF Urine WBC 5-10 H /HPF Urine Crystals NONE /LPF Urine Bacteria TRACE /HPF Urine Casts NONE /LPF Urine Mucus NEGATIVE /LPF Urine Culture Indicated CULTURE PENDING Micro Results Microbiology 06/15/19 Influenza Types A,B Antigen (HOLLIE) - Final, Complete My Orders Orders - JOHAN FELDMAN MD Cbc With Automated Diff (06/15/19 20:25) Comprehensive Metabolic Panel (06/15/19 20:25) Rapid Strep A Screen (06/15/19 20:25) Influenza A And B Antigens (06/15/19 20:25) Ed Iv/Invasive Line Start (06/15/19 20:25) Blood Culture (06/15/19 20:49) Sputum Culture (06/15/19 20:49) Urinalysis (06/15/19 20:49) Urine Culture (06/15/19 20:49) Protime With Inr (06/15/19 20:49) Partial Thromboplastin Time (06/15/19 20:49) Chest 1 View, Ap/Pa Only (06/15/19 20:49) Ed Iv/Invasive Line Start (06/15/19 20:49) Vital Signs Adult Sepsis Patie Q15M (06/15/19 20:49) O2 (06/15/19 20:49) Remove Rings In Anticipation O (06/15/19 20:49) Lactic Acid Analyzer (06/15/19 20:49) Ceftriaxone For Iv Use (Rocephin For I (06/15/19 21:00) Hs C Reactive Protein (06/15/19 20:49) Fibrin Degradation Products (06/15/19 21:38) Medications Given in ED Current Medications Medications Dose Ordered Sig/Jen Route Start Time Stop Time Status Last Admin Dose Admin Ceftriaxone Sodium 1000 mg/ Sterile Water 10 ml @ 200 mls/hr ONCE ONCE IV 06/15/19 21:00 06/15/19 21:02 DC 06/15/19 21:26 200 MLS/HR Vital Signs/I&O 06/15/19 06/15/19 06/15/19 20:25 21:28 23:15 Temp 37.2 37.2 36.9 Pulse 98 95 93 Resp 18 18 17 B/P (MAP) 125/78 (94) 146/69 (94) 127/73 (94) Pulse Ox 98 98 97 O2 Delivery Room Air Room Air Room Air Capillary Refill : Less Than 3 Seconds Blood Pressure Mean: 94 Progress Note : Progress Note Workup was fairly unremarkable. Rapid flu and strep were negative. D-dimer was also negative. Patient appeared to have cellulitis and was treated accordingly with Rocephin. Although she had a positive documented exposure to COVID-19, she was not having any symptoms consistent with covert infection. Full PPE was observed when caring for this patient. Diagnostic Imaging Diagonstic Imaging: Xray Plain Films/CT/US/NM/MRI: chest Comments Chest x-ray viewed by me and report reviewed. See report below: NAME: ARMANI [facility] REC#: [id number] PT STATUS: REG ER : 1940 PHYSICIAN: JOHAN FELDMAN MD ADMIT DATE: 06/15/19/ER Signed Date of Exam:06/15/19 CHEST 1 VIEW, AP/PA ONLY INDICATION: Cough. Correlation is made to CT examination from 05/29/2019. FINDINGS: No new pulmonary infiltrate or consolidation is evident. There is no evidence of an effusion. There is no pneumothorax. Heart size and mediastinal contours appear stable. Pulmonary vascularity appears appropriate. There appear to be previous surgical changes of anterior cervical discectomy and fusion. IMPRESSION: No radiographic evidence of an acute cardiopulmonary process. Dictated by: Dictated on workstation # [id number] Dict: 06/15/192123 Trans: 06/15/192130 [facility] [id number] Interpreted by: GARCIA HUERTA MD Electronically signed by: GARCIA HUERTA MD 06/15/192130 Departure Impression Primary Impression: Cellulitis of left leg Additional Impression: Urinary tract infection Qualified Codes: N39.0 - Urinary tract infection, site not specified Disposition: HOME, SELF-CARE Condition: Improved Departure-Patient Inst. Referrals: MILVIA MARIE MD (PCP/Family) Primary Care Physician Patient Instructions: COVID19, Cellulitis (Skin Infection), Adult (DC), Urinary Tract Infection, Adult (DC) Add. Discharge Instructions: Drink plenty of clear liquids and urinate often. Start your antibiotic tomorrow and complete as prescribed. Return to care if you have worsening symptoms including persistent fevers, worsening shortness of breath, etc. Call the emergency room before coming and if you call an ambulance Trace's be certain to inform them you're under investigation for brink virus. Follow-up health Department regulations for quarantine and observation of brink virus. All discharge instructions reviewed with patient and/or family. Voiced understanding. Scripts Cefdinir (Cefdinir) 300 Mg Capsule 300 MG PO BID, #20 CAP Prov: JOHAN FELDMAN MD 06/15/19 JOHAN FELDMAN MD Jun 15, 2019 21:59
[2019-06-15 22:14] LABS: BILIRUBIN,URINE NEGATIVE (NEGATIVE); CLARITY,URINE CLEAR; COLOR,URINE YELLOW; GLUCOSE, URINE (UA) NEGATIVE (NEGATIVE); KETONES,URINE NEGATIVE (NEGATIVE); LEUKOCYTE ESTERASE ,URINE 1+ (NEGATIVE); NITRITE,URINE NEGATIVE (NEGATIVE); PH,URINE 5.5 (5-9); PROTEIN,URINE NEGATIVE (NEGATIVE)
[2019-06-15 22:21] LABS: BACTERIA,URINE TRACE /HPF; RBC,URINE RARE /HPF
[2019-06-15] MEDS ORDERED: CEFD300C3 PO (22:49)
[2019-06-15 23:15] VITALS: BP 127/73
== END 2019-06-15 23:48 | disposition home or self-care (01) ==
LOC: EDUNIT# 20:22 → ER 20:23
DX: L03.116 Cellulitis of left lower limb (principal); N39.0 Urinary tract infection, site not specified; J44.9 Chronic obstructive pulmonary disease, unspecified; E78.00 Pure hypercholesterolemia, unspecified; I10 Essential (primary) hypertension; K21.9 Gastro-esophageal reflux disease without esophagitis; M54.9 Dorsalgia, unspecified; F32.9 Major depressive disorder, single episode, unspecified; Z20.828 Contact with and (suspected) exposure to other viral communicable diseases; Z87.891 Personal history of nicotine dependence; Z79.82 Long term (current) use of aspirin; Z79.899 Other long term (current) drug therapy
CPT/HCPCS: 36415; 71045; 80053; 81000; 83605; 85025; 85379; 85610; 85730; 86141; 87040; 87088; 87430; 87804

== ENCOUNTER → 2021-09-18 | Outpatient (RCR) | payer OTHER, MEDICAID ==
[~2021-09-18] MED LIST changes: +AMLO-250 PO; -AMLO5TAB9 PO; +CEFD300C3 PO; -LISI-552 PO; +LISI20TA26 PO; +SERT-414 PO
== END | disposition home or self-care (01) ==
PROVIDERS: ATTEND Orthopaedic Surgery
DX: M19.011 Primary osteoarthritis, right shoulder (principal); M75.21 Bicipital tendinitis, right shoulder; I10 Essential (primary) hypertension; J45.909 Unspecified asthma, uncomplicated

== ENCOUNTER 2021-10-16 10:27 | Outpatient (RCR) | payer OTHER, MEDICAID | END 2021-10-19 | disposition home or self-care (01) | PROVIDERS: ATTEND Orthopaedic Surgery | DX: M19.011 Primary osteoarthritis, right shoulder (principal); M75.21 Bicipital tendinitis, right shoulder; I10 Essential (primary) hypertension; J45.909 Unspecified asthma, uncomplicated ==

== ENCOUNTER 2021-10-23 11:11 | Outpatient (RCR) | payer OTHER, MEDICAID | END 2021-10-23 12:03 | disposition home or self-care (01) | PROVIDERS: ATTEND Orthopaedic Surgery | DX: M19.011 Primary osteoarthritis, right shoulder (principal); M75.21 Bicipital tendinitis, right shoulder; I10 Essential (primary) hypertension; J45.909 Unspecified asthma, uncomplicated ==

== ENCOUNTER 2021-10-30 15:16 | Emergency (ER) | payer MEDICARE ==
[~2021-10-30] VITALS: Ht 162 cm; Wt 82.0 kg
[2021-10-30] MEDS ORDERED: methylPREDNISolone 125 MG (Solu-MEDROL) VIAL IVP ONE ×2 (15:30→19:15)
[2021-10-30] MEDS ORDERED: diphenhydrAMINE 50 MG/ML INJ (BENADRYL) IVP ONE ×2 (15:30→19:15)
[2021-10-30] MEDS ORDERED: FAMOTIDINE 20MG/2ML IV (PEPCID) IVP ONE ×2 (15:30→19:15)
--- NOTE | 2021-10-30 15:30 | ED EENT ---
History of Present Illness General Stated Complaint: ALLERGIC REACTION Source: patient Exam Limitations: no limitations (ALVIN RIVERO MD) History of Present Illness Date Seen by Provider: Oct 30, 2021 Time Seen by Provider: 15:20 Initial Comments Patient is a 81-year-old female who presents to the emergency department today w ith a chief complaint of mouth/tongue swelling. Patient states that she went to her clinic 2 days ago with some congestion and mild cough. She was placed on naproxen, doxycycline and prednisone. She took her first dose of these medications last night before bed and when she woke up this morning she noted the left side of her tongue was very swollen. She states when she woke up she also had some difficulty/painful swallowing. She states that has improved over the course of the day. She has not taken any medications to try and alleviate the symptoms. She denies feeling short of breath but does have a history of asthma she states that "flares up" when she gets anxious. She has never had symptoms like this before. No chest pain. No nausea or vomiting. No other GI symptoms. No fevers or chills currently. She is not on oxygen at home. Further investigation reveals that the patient is on lisinopril and has been on it for several years. My suspicion was that this is not a reaction to the medications prescribed 2 days ago but more a reaction to her lisinopril. She did start another NSAID and this may have precipitated the reaction with her lisinopril. All other review of systems reviewed and negative except as stated Timing/Duration: abrupt Severity: moderate Location: mouth (tongue) Prearrival Treatment: no prearrival treatment Associated Symptoms: No cough, No drooling, No nasal congestion/drainage; sore throat, other (difficulty swallowing) (ALVIN RIVERO MD) Allergies and Home Medications Allergies Coded Allergies: lisinopril (Verified Allergy, Severe, Angioedema, 10/30/21) Patient Home Medication List Home Medication List Reviewed: Yes (ALVIN RIVERO MD) Amlodipine Besylate (Amlodipine Besylate) 5 Mg Tablet, 5 MG PO DAILY, (Reported) Entered as Reported by: JHONY ZAZUETA on 08/09/18 0857 Aspirin (Aspir 81) 81 Mg Tablet.dr, 81 MG PO DAILY, (Reported) Entered as Reported by: JHONY ZAZUETA on 08/09/18 0857 Cefdinir (Cefdinir) 300 Mg Capsule, 300 MG PO BID Prescribed by: JOHAN ROMERO on 06/15/19 2249 Famotidine (Famotidine) 20 Mg Tablet, 20 MG PO BID, (Reported) Entered as Reported by: SRINIVAS ARELLANO on 03/13/16 1019 Fluticasone/Vilanterol (Breo Ellipta 200-25 Mcg INH) 1 Each Blst.w.dev, 1 EACH IH DAILY, (Reported) Entered as Reported by: JHONY ZAZUETA on 08/09/18 0857 Gabapentin (Gabapentin) 300 Mg Capsule, 300 MG PO HS, (Reported) Entered as Reported by: JHONY ZAZUETA on 08/09/18 0857 Levothyroxine Sodium (Levothyroxine Sodium) 88 Mcg Tablet, 88 MCG PO DAILY, (Reported) Entered as Reported by: JHONY ZAZUETA on 08/09/18 0857 Lisinopril (Lisinopril) 20 Mg Tablet, 20 MG PO DAILY, (Reported) Entered as Reported by: SRINIVAS ARELLANO on 03/13/16 1019 Metoprolol Succinate (Metoprolol Succinate) 50 Mg Tab.er.24h, 50 MG PO DAILY, (Reported) Entered as Reported by: SRINIVAS ARELLANO on 03/13/16 1019 Rosuvastatin Calcium (Crestor) 5 Mg Tablet, 5 MG PO HS, (Reported) Entered as Reported by: SRINIVAS ARELLANO on 03/13/16 1019 Sertraline HCl (Sertraline HCl) 100 Mg Tablet, 100 MG PO DAILY, (Reported) Entered as Reported by: SRINIVAS ARELLANO on 03/13/16 1019 Tramadol HCl (Ultram) 50 Mg Tablet, 50 MG PO Q6H PRN for PAIN-MODERATE (5-7) Prescribed by: GRIFFIN PARKER on 04/20/191956 Review of Systems Review of Systems Constitutional: see HPI Eyes: No Symptoms Reported Ears: No Symptoms Reported Nose: no symptoms reported Mouth: swelling Throat: painful swallowing Respiratory: dyspnea on exertion, short of breath (with anxiety (h/o asthma)) Gastrointestinal: no symptoms reported Musculoskeletal: no symptoms reported Skin: no symptoms reported Neurological: Anxiety (ALVIN RIVERO MD) All Other Systems Reviewed Negative Unless Noted: Yes (ALVIN RIVERO MD) Past Exnybrw-Vypkrt-Kcbxbu Hx Immunizations Up To Date Tetanus Booster (TDap): Less than 5yrs PED Vaccines UTD: Yes (ALVIN RIVERO MD) Seasonal Allergies Seasonal Allergies: Yes (ALVIN RIVERO MD) Past Medical History Surgeries: Yes (NECK AND BACK) Hysterectomy, Orthopedic Respiratory: Yes Asthma, COPD Cardiac: Yes High Cholesterol, Hypertension Neurological: No Reproductive Disorders: No Female Reproductive Disorders: Denies [employer] History: Hysterectomy, Menopausal Sexually Transmitted Disease: No HIV/AIDS: No Genitourinary: No Gastrointestinal: Yes Gastroesophageal Reflux Musculoskeletal: Yes Chronic Back Pain Endocrine: Yes Hypothyroidsim HEENT: No (GLASSES) Loss of Vision: Bilateral Hearing Impairment: Denies Cancer: No Psychosocial: Yes Depression Integumentary: No Blood Disorders: No Adverse Reaction/Blood Tranf: No (N/A) (ALVIN RIVERO MD) Family Medical History Arthritis Asthma Cancer of mouth Cardiovascular disease Cataracts Colon cancer Hypertension Myocardial infarction No Family History of: AIDS Abdominal aortic aneurysm David's disease Alcoholism Alzheimer's disease Aphasia Completed stroke Congenital disease Congenital heart disease Coronary thrombosis Cystic fibrosis Deafness or hearing loss Dementia Diabetes mellitus Drug abuse Dysphasia Fibrocystic disease of breast Gastroenteritis Glaucoma Headache disorder Hypercholesterolemia Infertility Kidney disease Neoplasm Not obtainable due to adoption Osteoporosis Parkinson's disease Prostate cancer Psychosocial problem Respiratory disorder Seizure disorder Severe allergy Thyroid disease Tuberculosis Visual disorder No Pertinent Family Hx (ALVIN RIVERO MD) Physical Exam Vital Signs Vital Signs - First Documented 10/30/21 10/30/21 15:32 19:00 Temp 36.8 Pulse 100 Resp 20 B/P (MAP) 127/97 Pulse Ox 97 (IGNACIO,JANICE K DO) Height, Weight, BMI Height: 5'4.00" Weight: 175lbs. 2.0oz. 79.866267yc; 30.00 BMI Method:Estimated General Appearance: WD/WN, no apparent distress Eyes: bilateral eye normal inspection, bilateral eye PERRL, bilateral eye EOMI Nose: normal inspection Mouth/Throat: No dental tenderness, No mandibular swelling; tongue swollen (left sided predominance - does not appear to extend back to the uvula - I can visualize the uvula and left tonsillar pillar; moist mucous membranes); No uvula swelling, No voice changes Neck: non-tender, full range of motion, supple, normal inspection Cardiovascular: regular rate, rhythm Respiratory: lungs clear, normal breath sounds, no respiratory distress, no accessory muscle use; No decreased breath sounds, No accessory muscle use, No wheezing Gastrointestinal: non tender, soft Neurologic/Psychiatric: alert, normal mood/affect, oriented x 3 Skin: normal color, warm/dry (ALVIN RIVERO MD) Progress/Results/Core Measures Results/Orders Lab Results Laboratory Tests Test 10/30/21 13:28 Range/Units White Blood Count 17.0 H 4.3-11.0 10^3/uL Red Blood Count 4.10 3.80-5.11 10^6/uL Hemoglobin 12.5 11.5-16.0 g/dL Hematocrit 38 35-52 % Mean Corpuscular Volume 92 80-99 fL Mean Corpuscular Hemoglobin 31 25-34 pg Mean Corpuscular Hemoglobin Concent 33 32-36 g/dL Red Cell Distribution Width 12.7 10.0-14.5 % Platelet Count 358 130-400 10^3/uL Mean Platelet Volume 9.8 9.0-12.2 fL Immature Granulocyte % (Auto) 2 % Neutrophils (%) (Auto) 74 42-75 % Lymphocytes (%) (Auto) 16 12-44 % Monocytes (%) (Auto) 7 0-12 % Eosinophils (%) (Auto) 0 0-10 % Basophils (%) (Auto) 1 0-10 % Neutrophils # (Auto) 12.6 H 1.8-7.8 10^3/uL Lymphocytes # (Auto) 2.7 1.0-4.0 10^3/uL Monocytes # (Auto) 1.1 H 0.0-1.0 10^3/uL Eosinophils # (Auto) 0.0 0.0-0.3 10^3/uL Basophils # (Auto) 0.1 0.0-0.1 10^3/uL Immature Granulocyte # (Auto) 0.4 H 0.0-0.1 10^3/uL Neutrophils % (Manual) 75 % Lymphocytes % (Manual) 20 % Monocytes % (Manual) 5 % Blood Morphology Comment NORMAL Sodium Level 138 135-145 MMOL/L Potassium Level 4.8 3.6-5.0 MMOL/L Chloride Level 107 98-107 MMOL/L Carbon Dioxide Level 17 L 21-32 MMOL/L Anion Gap 14 5-14 MMOL/L Blood Urea Nitrogen 34 H 7-18 MG/DL Creatinine 1.34 H 0.60-1.30 MG/DL Estimat Glomerular Filtration Rate 40 BUN/Creatinine Ratio 25 Glucose Level 310 H 70-105 MG/DL Calcium Level 9.6 8.5-10.1 MG/DL (JANICE PIERRE DO) My Orders Orders - JANICE PIERRE DO Diphenhydramine Injection (Benadryl Inje (10/30/21 19:15) Famotidine Injection (Pepcid Injection) (10/30/21 19:15) Methylprednisolone Sod Succ (Solu-Medrol (10/30/21 19:15) (JANICE PIERRE DO) Medications Given in ED Current Medications Medications Dose Ordered Sig/Jen Route Start Time Stop Time Status Last Admin Dose Admin Diphenhydramine HCl 50 mg ONCE ONCE IVP 10/30/21 19:15 10/30/21 19:16 DC 10/30/21 19:28 50 MG Famotidine 40 mg ONCE ONCE IVP 10/30/21 19:15 10/30/21 19:16 DC 10/30/21 19:31 40 MG Methylprednisolone Sodium Succinate 125 mg ONCE ONCE IVP 10/30/21 19:15 10/30/21 19:16 DC 10/30/21 19:29 125 MG (JANICE PIERRE DO) Vital Signs/I&O 10/30/21 10/30/21 10/30/21 10/30/21 15:32 17:21 17:45 19:00 Temp 36.8 36.6 36.4 36.6 Pulse 100 70 B/P (MAP) Pulse Ox 97 10/30/21 10/30/21 10/30/21 10/30/21 19:00 19:40 19:55 20:40 Temp 36.6 36.6 36.4 36.8 Pulse 75 78 80 Resp 20 16 B/P (MAP) 127/97 175/80 Pulse Ox 98 98 10/30/21 20:41 Temp 36.8 (JANICE PIERRE DO) Progress Progress Note : Time: 15:56 Progress Note Case discussed with Dr. Fischer. We reviewed possible treatment options for NICHOLE inhibitor induced angioedema. We settled on 2 units of FFP. Her vital signs are stable. She is in no acute respiratory distress. I do not have a concern for an acute respiratory/airway failure. I talked to her about the transfusion and she is agreeable. We will monitor her for a few hours to make sure that she is not experiencing any worsening. If she remains stable she can go home. Expect the swelling to last for 24 to 72 hours. Patient is counseled on not taking any further lisinopril. I did put a large ask over her lisinopril bottle. I advised her we would increase her amlodipine from 5 mg daily to 10 mg and she needs to call her primary care doctor's office tomorrow. I also counseled her that there is a risk for recurrence over the next several months due to the fact of residual effects of the lisinopril. She verbalized understanding. (ALVIN RIVERO MD) Progress Note : Progress Note 1800--ASSUMED CARE OF PT AT SHIFT CHANGE, PT IS RECEIVING FFP AT THIS TIME. PT STILL WITH SWELLING TO TONGUE, BUT PT STATES IT IS BETTER, AND IS ABLE TO TALK BETTER, TONE SWELLING IS SLOWLY DECREASING PT HAS BEEN GIVEN BENADRYL, PEPCID, SOLU-MEDROL AND FFP SYMPTOMS COMPLETELY RESOLVED AT DISMISSAL PT ABLE TO DRINK WATER WITHOUT DIFFICULTY (JANICE PIERRE DO) Critical Care Note Critical Care Start Time: 15:20 Stop Time: 17:30 Total Time (minutes) 2 hours critical care time in the ongoing evaluation of this patient with NICHOLE inhibitor induced angioedema. Time includes initial evaluation, treatment with standard allergy medications until we assessed the possible causes. Treatment with FFP and repeat evaluations of oropharynx and airway. Review and interpretation of labs, discussion with internal medicine. 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 Decision time for Depature: 20:32 (JANICE PEIRRE DO) Referrals: LIVIA GARZA MD (PCP/Family) Primary Care Physician Patient Instructions: Angioedema Caused by NICHOLE Inhibitor Medicines Add. Discharge Instructions: You need to stop your lisinopril. It is very important that you not to take this medication again or any member of this medication family known as NICHOLE INHIBITORS. You likely also should not take any blood pressure medications in the [facility] Family. There is a risk over the next few months that your swelling may return. If you have any discomfort in your mouth or concerns for swelling in the mouth or throat please go to your nearest emergency room. I am going to increase your amlodipine from 5 mg to 10 mg daily. On the bottle that you have now you will take 2 pills daily until you follow-up with your primary care doctor to discuss further options for blood pressure management. Return to the emergency department for any new, concerning or emergent complaints. FOLLOW UP WITH YOUR DR THIS WEEK FOR FURTHER CARE--CALL IN THE MORNING TO SCHEDULE APPOINTMENT ALVIN RIVERO MD Oct 30, 2021 15:30 JANICE PIERRE DO Oct 30, 2021 18:24
[2021-10-30 15:56] LABS: CALCIUM 9.6 MG/DL (8.5-10.1); CREATININE SERUM 1.34 MG/DL (0.60-1.30); POTASSIUM 4.8 MMOL/L (3.6-5.0)
[2021-10-30 16:11] LABS: BASOPHILS # (AUTO) 0.1 10^3/uL (0.0-0.1); BASOPHILS % (AUTO) 1 % (0-10); EOSINOPHILS % (AUTO) 0 % (0-10); HEMATOCRIT 38 % (35-52); HEMOGLOBIN 12.5 g/dL (11.5-16.0); LYMPHOCYTES # (AUTO) 2.7 10^3/uL (1.0-4.0); LYMPHOCYTES % (AUTO) 16 % (12-44); MEAN CORPUSCULAR HEMOGLOBIN 31 pg (25-34); MEAN CORPUSCULAR HGB CONC 33 g/dL (32-36); MEAN CORPUSCULAR VOLUME 92 fL (80-99); MEAN PLATELET VOLUME 9.8 fL (9.0-12.2); MONOCYTES # (AUTO) 1.1 10^3/uL (0.0-1.0); MONOCYTES % (AUTO) 7 % (0-12); NEUTROPHILS # (AUTO) 12.6 10^3/uL (1.8-7.8); NEUTROPHILS % (AUTO) 74 % (42-75); PLATELET COUNT 358 10^3/uL (130-400)
[2021-10-30] MEDS ORDERED: NS IV 500 ML 500 ML IV SCH (16:15)
[2021-10-30 17:08] LABS: LYMPHOCYTES % (MANUAL) 20 %; MONOCYTES % (MANUAL) 5 %; NEUTROPHILS % (MANUAL) 75 %
[2021-10-30 17:09] LABS: RBC MORPH NORMAL
[2021-10-30 19:55] VITALS: BP 180/87
== END 2021-10-30 20:46 | disposition home or self-care (01) ==
LOC: EDUNIT# 15:16 → ER 15:19
DX: T78.3XXA Angioneurotic edema, initial encounter (principal)
CPT/HCPCS: 80048; 85007; 85027; 86850; 86900; 86901; 99284; P9017; 36415

== ENCOUNTER 2021-12-23 15:03 | Emergency (ER) | payer MEDICARE ==
[~2021-12-23] VITALS: Ht 162.5 cm; Wt 81.6 kg
--- NOTE | 2021-12-23 15:18 | ED Cardiac General ---
History of Present Illness General Chief Complaint: Chest Pain Stated Complaint: CHEST/BACK PAIN Nursing Triage Note: SHARP LEFT LOWER CHEST PAIN RADIATION AROUND TO HER BACK SINCE 0600 THIS AM. Source: patient Exam Limitations: no limitations (TANVIR LEMON APRN) History of Present Illness Date Seen by Provider: Dec 23, 2021 Time Seen by Provider: 15:18 Initial Comments This is a 81 yo female who presented to the ER with c/o left sided chest pain that radiates around her left side and into the middle of her back since 0600 this am. Describes as intermittent sharp, stabbing spasms that worsen with movement. Her pain will go from 0/10 to 10/10 and last only a few seconds at a time. When the pain is present she "can hardly move". Has history of HTN, HLD, GERD, Asthma, and DM. She has taken all of her home medications today. Unable to eat solid foods today due to pain, drinking water well. Has received all of her COVID vaccines. Not vaccinated against Shingles. Denies fever, chills, shortness of breath, nausea, vomiting, abdominal pain, dysuria, hematuria. (TANVIR LEMON APRN) Allergies and Home Medications Allergies Coded Allergies: lisinopril (Verified Allergy, Severe, Angioedema, 10/30/21) Patient Home Medication List Home Medication List Reviewed: Yes (TANVIR LEMON APRN) Amlodipine Besylate (Amlodipine Besylate) 5 Mg Tablet, 5 MG PO DAILY, (Reported) Entered as Reported by: JHONY ZAZUETA on 08/09/18 0857 Aspirin (Aspir 81) 81 Mg Tablet.dr, 81 MG PO DAILY, (Reported) Entered as Reported by: JHONY ZAZUETA on 08/09/18 0857 Cefdinir (Cefdinir) 300 Mg Capsule, 300 MG PO BID Prescribed by: JOHAN ROMERO on 06/15/19 6109 Famotidine (Famotidine) 20 Mg Tablet, 20 MG PO BID, (Reported) Entered as Reported by: SRINIVAS ARELLANO on 03/13/16 1019 Fluticasone/Vilanterol (Breo Ellipta 200-25 Mcg INH) 1 Each Blst.w.dev, 1 EACH IH DAILY, (Reported) Entered as Reported by: JHONY ZAZUETA on 08/09/18 0857 Gabapentin (Gabapentin) 300 Mg Capsule, 300 MG PO HS, (Reported) Entered as Reported by: JHONY ZAZUETA on 08/09/18 0857 Levothyroxine Sodium (Levothyroxine Sodium) 88 Mcg Tablet, 88 MCG PO DAILY, (Reported) Entered as Reported by: JHONY ZAZUETA on 08/09/18 0857 Lisinopril (Lisinopril) 20 Mg Tablet, 20 MG PO DAILY, (Reported) Entered as Reported by: SRINIVAS ARELLANO on 03/13/16 1019 Methocarbamol (Methocarbamol) 500 Mg Tablet, 500 MG PO Q6-8HR Prescribed by: TANVIR LEMON on 12/23/21 1654 Metoprolol Succinate (Metoprolol Succinate) 50 Mg Tab.er.24h, 50 MG PO DAILY, (Reported) Entered as Reported by: SRINIVAS ARELLANO on 03/13/16 1019 Rosuvastatin Calcium (Crestor) 5 Mg Tablet, 5 MG PO HS, (Reported) Entered as Reported by: SRINIVAS ARELLANO on 03/13/16 1019 Sertraline HCl (Sertraline HCl) 100 Mg Tablet, 100 MG PO DAILY, (Reported) Entered as Reported by: SRINIVAS ARELLANO on 03/13/16 1019 Tramadol HCl (Ultram) 50 Mg Tablet, 50 MG PO Q6H PRN for PAIN-MODERATE (5-7) Prescribed by: GRIFFIN PARKER on 04/20/191956 Review of Systems Review of Systems Constitutional: see HPI EENTM: No Symptoms Reported Respiratory: See HPI Cardiovascular: See HPI Gastrointestinal: No Symptoms Reported Genitourinary: No Symptoms Reported Musculoskeletal: see HPI Skin: no symptoms reported Psychiatric/Neurological: No Symptoms Reported Endocrine: No Symptoms Reported Hematologic/Lymphatic: No Symptoms Reported (TANVIR LEMON APRN) Past Bmxjhki-Brhysq-Sawdat Hx Immunizations Up To Date Tetanus Booster (TDap): Less than 5yrs PED Vaccines UTD: Yes (TANVIR LEMON APRN) Seasonal Allergies Seasonal Allergies: Yes (TANVIR LEMON APRN) Past Medical History Surgeries: Yes (NECK AND BACK) Hysterectomy, Orthopedic Respiratory: Yes Asthma, COPD Cardiac: Yes High Cholesterol, Hypertension Neurological: No Reproductive Disorders: No 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, 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 Sexually Transmitted Disease: No HIV/AIDS: No Genitourinary: No Gastrointestinal: Yes Gastroesophageal Reflux Musculoskeletal: Yes Chronic Back Pain Endocrine: Yes Hypothyroidsim HEENT: No (GLASSES) Loss of Vision: Bilateral Hearing Impairment: Denies Cancer: No Psychosocial: Yes Depression Integumentary: No Blood Disorders: No Adverse Reaction/Blood Tranf: No (N/A) (TANVIR LEMON APRN) Family Medical History Arthritis Asthma Cancer of mouth Cardiovascular disease Cataracts Colon cancer Hypertension Myocardial infarction No Family History of: AIDS Abdominal aortic aneurysm [place]'s disease Alcoholism Alzheimer's disease Aphasia Completed stroke Congenital disease Congenital heart disease Coronary thrombosis Cystic fibrosis Deafness or hearing loss Dementia Diabetes mellitus Drug abuse Dysphasia Fibrocystic disease of breast Gastroenteritis Glaucoma Headache disorder Hypercholesterolemia Infertility Kidney disease Neoplasm Not obtainable due to adoption Osteoporosis Parkinson's disease Prostate cancer Psychosocial problem Respiratory disorder Seizure disorder Severe allergy Thyroid disease Tuberculosis Visual disorder No Pertinent Family Hx (TANVIR LEMON APRN) Physical Exam Vital Signs Vital Signs - First Documented 12/23/21 15:05 Temp 37.0 Pulse 108 Resp 20 B/P (MAP) 203/97 (132) Pulse Ox 98 O2 Delivery Room Air (JOHAN FELDMAN MD) Vital Signs Capillary Refill : Less Than 3 Seconds (TANVIR LEMON APRN) Height, Weight, BMI Height: 5'4.00" Weight: 175lbs. 2.0oz. 79.483924qs; 30.00 BMI Method:Estimated General Appearance: No Apparent Distress, WD/WN HEENT: PERRL/EOMI, Normal ENT Inspection, Pharynx Normal, Moist Mucous Membranes Neck: Full Range of Motion, Normal Inspection, Supple Respiratory: Lungs Clear, Normal Breath Sounds, No Accessory Muscle Use, No Respiratory Distress, Other (left anterior and lateral chest wall tenderness. 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 Skin: Normal Color, Warm/Dry (TANVIR LEMON APRN) Progress/Results/Core Measures Results/Orders Lab Results Laboratory Tests Test 12/23/21 15:10 Range/Units White Blood Count 10.8 4.3-11.0 10^3/uL Red Blood Count 4.05 3.80-5.11 10^6/uL Hemoglobin 12.1 11.5-16.0 g/dL Hematocrit 37 35-52 % Mean Corpuscular Volume 91 80-99 fL Mean Corpuscular Hemoglobin 30 25-34 pg Mean Corpuscular Hemoglobin Concent 33 32-36 g/dL Red Cell Distribution Width 13.4 10.0-14.5 % Platelet Count 300 130-400 10^3/uL Mean Platelet Volume 10.0 9.0-12.2 fL Immature Granulocyte % (Auto) 0 % Neutrophils (%) (Auto) 53 42-75 % Lymphocytes (%) (Auto) 31 12-44 % Monocytes (%) (Auto) 9 0-12 % Eosinophils (%) (Auto) 7 0-10 % Basophils (%) (Auto) 1 0-10 % Neutrophils # (Auto) 5.7 1.8-7.8 X 10^3 Lymphocytes # (Auto) 3.3 1.0-4.0 X 10^3 Monocytes # (Auto) 1.0 0.0-1.0 X 10^3 Eosinophils # (Auto) 0.7 H 0.0-0.3 10^3/uL Basophils # (Auto) 0.1 0.0-0.1 10^3/uL Immature Granulocyte # (Auto) 0.3 H 0.0-0.1 10^3/uL Prothrombin Time 14.3 12.2-14.7 SEC INR Comment 1.1 0.8-1.4 Activated Partial Thromboplast Time 35 24-35 SEC D-Dimer 0.33 0.00-0.49 UG/ML Sodium Level 139 135-145 MMOL/L Potassium Level 4.1 3.6-5.0 MMOL/L Chloride Level 110 H 98-107 MMOL/L Carbon Dioxide Level 18 L 21-32 MMOL/L Anion Gap 11 5-14 MMOL/L Blood Urea Nitrogen 29 H 7-18 MG/DL Creatinine 1.17 0.60-1.30 MG/DL Estimat Glomerular Filtration Rate 47 BUN/Creatinine Ratio 25 Glucose Level 125 H 70-105 MG/DL Calcium Level 10.4 H 8.5-10.1 MG/DL Corrected Calcium 8.5-10.1 MG/DL Magnesium Level 1.8 1.6-2.4 MG/DL Total Bilirubin 0.4 0.1-1.0 MG/DL Aspartate Amino Transf (AST/SGOT) 103 H 5-34 U/L Alanine Aminotransferase (ALT/SGPT) 67 H 0-55 U/L Alkaline Phosphatase 108 40-136 U/L Total Creatine Kinase 64 29-168 U/L Creatine Kinase MB 1.2 <6.6 NG/ML Myoglobin 46.2 10.0-92.0 NG/ML Troponin I < 0.028 <0.028 NG/ML B-Type Natriuretic Peptide 13.5 <100.0 PG/ML Total Protein 8.1 6.4-8.2 GM/DL Albumin 4.6 H 3.2-4.5 GM/DL Lipase 46 8-78 U/L (JOHAN FELDMAN MD) Medications Given in ED Current Medications Medications Dose Ordered Sig/Jen Route Start Time Stop Time Status Last Admin Dose Admin Ketorolac Tromethamine 15 mg ONCE ONCE IVP 12/23/21 15:30 12/23/21 15:31 DC 12/23/21 15:24 15 MG Orphenadrine Citrate 30 mg ONCE ONCE IVP 12/23/21 15:30 12/23/21 15:31 DC 12/23/21 15:21 30 MG Sodium Chloride 500 ml @ 0 mls/hr Q0M ONCE IV 12/23/21 16:19 12/23/21 17:16 DC 12/23/21 16:56 500 MLS/HR (JOHAN FELDMAN MD) Vital Signs/I&O 12/23/21 12/23/21 15:05 17:18 Temp 37.0 Pulse 108 87 Resp 20 18 B/P (MAP) 203/97 (132) 143/78 Pulse Ox 98 96 O2 Delivery Room Air Room Air (JOHAN FELDMAN MD) Blood Pressure Mean: 132 Progress Progress Note : Progress Note Has no pain with light touch only with deeper palpation at left sternal border and on left lateral ribs into upper back making Shingles less likely but still in the differential. Pain improved after Toradol and Norflex. Her cardiac workup is neg. CXR neg. CT abd/pelvis w/o ordered for elevation in LFT's and was unremarkable. Discussed with her PCP Christine Pompa recommendations for close follow up, possible gallbladder US. If she has worsened pain or rash develop she is to call her PCP or return. Verbalized understanding. (TANVIR LEMON APRN) Initial ECG Impression Date: Dec 23, 2021 Initial ECG Impression Time: 15:11 Initial ECG Rate: 97 Initial ECG Rhythm: Normal Sinus Initial ECG Intervals: Normal Initial ECG Impression: Nonspecific Changes (TANVIR LEMON APRN) Diagnostic Imaging Diagonstic Imaging: Xray Plain Films/CT/US/NM/MRI: chest Comments [facility] [place], [place] NAME: ARMANI QUINONES [facility] REC#: [id number] PT STATUS: REG ER : 1940 PHYSICIAN: TANVIR LEMON APRN ADMIT DATE: 12/23/21/ER Signed Date of Exam:12/23/21 CHEST 1 VIEW, AP/PA ONLY INDICATION: Chest pain. Frontal chest obtained at 4:04 p.m. and compared to 06/15/2019. FINDINGS: Heart and mediastinal silhouette are normal in appearance. The lungs are clear. There is no pneumothorax or pleural fluid. IMPRESSION: Negative chest. Dictated by: Dictated on workstation # [id number] Dict: 12/23/21 1607 Trans: 12/23/21 1616 [id number] Interpreted by: PRASHANTH BARRAGAN MD Electronically signed by: PRASHANTH BARRAGAN MD 12/23/21 1616 Reviewed: Reviewed by Me (TANVIR LEMON APRN) Departure Impression Primary Impression: Costochondritis Disposition: 01 HOME, SELF-CARE Condition: Improved Departure-Patient Inst. Decision time for Depature: 16:48 (TANVIR LEMON APRN) Referrals: LIVIA GARZA MD (PCP/Family) Primary Care Physician Patient Instructions: Costochondritis (DC) Add. Discharge Instructions: Plan: 1. May take Ibuprofen 400mg by mouth every 6 hours. 2. May take Robaxin 500mg by mouth every 6 hours as needed for muscle spasm. 3. Follow up with your primary care provider next week. 4. Return for any new, concerning, or worsening symptoms. All discharge instructions reviewed with patient and/or family. Voiced understanding. Scripts Methocarbamol (Methocarbamol) 500 Mg Tablet 500 MG PO Q6-8HR for Back Pain, #14 TAB 0 Refills Prov: TANVIR LEMON APRN 12/23/21 ATTENDING PHYSICIAN NOTE: I was physically present as attending physician in the emergency department during the care of this patient, but I was not directly involved in the decision making or delivery of care for this patient. (JOHAN FELDMAN MD) TANVIR LEMON APRN Dec 23, 2021 15:18 JOHAN FELDMAN MD Dec 23, 2021 19:45
[2021-12-23 15:24] LABS: HEMATOCRIT 37 % (35-52); HEMOGLOBIN 12.1 g/dL (11.5-16.0); MEAN CORPUSCULAR HEMOGLOBIN 30 pg (25-34); MEAN CORPUSCULAR HGB CONC 33 g/dL (32-36); MEAN CORPUSCULAR VOLUME 91 fL (80-99); WHITE BLOOD COUNT 10.8 10^3/uL (4.3-11.0)
[2021-12-23 15:25] LABS: BASOPHILS % (AUTO) 1 % (0-10); EOSINOPHILS % (AUTO) 7 % (0-10); LYMPHOCYTES % (AUTO) 31 % (12-44); MONOCYTES % (AUTO) 9 % (0-12); NEUTROPHILS # (AUTO) 5.7 X 10^3 (1.8-7.8); NEUTROPHILS % (AUTO) 53 % (42-75); PLATELET COUNT 300 10^3/uL (130-400)
[2021-12-23 15:26] LABS: BASOPHILS # (AUTO) 0.1 10^3/uL (0.0-0.1); EOSINOPHILS # (AUTO) 0.7 10^3/uL (0.0-0.3); LYMPHOCYTES # (AUTO) 3.3 X 10^3 (1.0-4.0)
[2021-12-23 15:30] LABS: ALBUMIN 4.6 GM/DL (3.2-4.5)
[2021-12-23] MEDS ORDERED: ORPHENADRINE 60 MG/2 ML (NORFLEX) AMP (ED ONLY) IVP ONE (15:30)
[2021-12-23] MEDS ORDERED: KETOROLAC 30 MG/ML VIAL IVP ONE (15:30)
[2021-12-23 15:31] LABS: CHLORIDE 110 MMOL/L (98-107); POTASSIUM 4.1 MMOL/L (3.6-5.0); SODIUM 139 MMOL/L (135-145)
[2021-12-23 15:32] LABS: CALCIUM 10.4 MG/DL (8.5-10.1)
[2021-12-23 15:33] LABS: GLUCOSE 125 MG/DL (70-105); TOTAL PROTEIN 8.1 GM/DL (6.4-8.2)
[2021-12-23 15:34] LABS: CARBON DIOXIDE 18 MMOL/L (21-32)
[2021-12-23 15:35] LABS: BILIRUBIN,TOTAL 0.4 MG/DL (0.1-1.0)
[2021-12-23 15:36] LABS: ALKALINE PHOSPHATASE 108 U/L (40-136)
[2021-12-23 15:37] LABS: CREATININE SERUM 1.17 MG/DL (0.60-1.30); GFR ESTIMATED 47; INR 1.1 (0.8-1.4); PROTHROMBIN TIME PATIENT 14.3 SEC (12.2-14.7)
[2021-12-23 15:38] LABS: BUN/CREATININE RATIO 25
[2021-12-23 15:39] LABS: MAGNESIUM 1.8 MG/DL (1.6-2.4)
[2021-12-23 15:40] LABS: ALANINE AMINOTRANSFERASE 67 U/L (0-55); CREATINE KINASE 64 U/L (29-168); LIPASE 46 U/L (8-78)
[2021-12-23 15:47] LABS: CREATINE KINASE MB 1.2 NG/ML (<6.6)
--- NOTE | 2021-12-23 16:08 | Diagnostic Imaging Report ---
INDICATION: Chest pain. Frontal chest obtained at 4:04 p.m. and compared to 06/15/2019. FINDINGS: Heart and mediastinal silhouette are normal in appearance. The lungs are clear. There is no pneumothorax or pleural fluid. IMPRESSION: Negative chest. Dictated by: Dictated on workstation # [id number]
[2021-12-23] MEDS ORDERED: NS IV 500 ML 500 ML IV ONE (16:19)
--- NOTE | 2021-12-23 16:35 | Diagnostic Imaging Report ---
PROCEDURE: CT abdomen and pelvis without contrast. TECHNIQUE: Multiple contiguous axial images were obtained through the abdomen and pelvis without the use of intravenous contrast. Auto Exposure Controls were utilized during the CT exam to meet ALARA standards for radiation dose reduction. INDICATION: Chest pain radiating to the back with elevated liver function tests. COMPARISON: Correlation is made with prior CT from 11/20/2016. FINDINGS: The lung bases are clear of acute infiltrates. The liver and gallbladder are unremarkable. There is no biliary ductal dilatation. Pancreas and spleen are unremarkable. No adrenal mass is detected. Kidneys are without calculi or hydronephrosis. Right kidney does contain a 4 cm cyst. Aorta is heavily calcified but nonaneurysmal. There is a small fat-containing umbilical hernia. There is also a fatty mass in the right posterolateral abdominal wall musculature consistent with a lipoma. This measures 6.6 x 3.1 cm. The small and large bowel loops are normal in caliber. There is no obstruction. There is no ascites. Bladder is unremarkable. Uterus appears to be surgically absent. Bony structures demonstrate postop changes in the lower lumbar spine of posterior instrumented fusion. IMPRESSION: No acute feature in the abdomen or pelvis is identified. Dictated by: Dictated on workstation # [id number]
[2021-12-23] MEDS ORDERED: METH-731 PO (16:54)
[2021-12-23 17:18] VITALS: BP 143/78
== END 2021-12-23 17:19 | disposition home or self-care (01) ==
LOC: EDUNIT# 15:03 → ER 15:06
DX: M94.0 Chondrocostal junction syndrome [Tietze] (principal)
CPT/HCPCS: 36415; 71045; 74176; 80053; 82550; 82553; 83690; 83735; 83874; 83880; 84484; 85025; 85379; 85610; 85730; 93005; 93041; 96374; 96375